=== PATIENT | female | born 1985 | race Caucasian/White ===

== ENCOUNTER 2017-07-18 20:40 | Inpatient (IN) | payer SELFPAY ==
[~2017-07-18] VITALS: Ht 162.6 cm; Wt 56.7 kg
[2017-07-18 20:45] VITALS: BP 133/84
--- NOTE | 2017-07-18 20:58 | Emergency Room Report ---
History of Present Illness General Chief Complaint: Behavioral Complaint Source: EMS Present Illness HPI 32-year-old female, Romanian-speaking, found by police running in the street. Patient was found crossing a mean intersection, barefoot, yelling "where's my phone". Police tried to keep her away from home, however patient was not cooperative, not informative. Will not provide any history. Only saying "I am from [place]", states that she has a sister, who lives in [place], however does not have any phone numbers. Patient noted to have right-sided foot redness, however not providing any history Such as timeline however states that it is painful. denies trauma. Patient able to ambulate without issue not providing any hx, no SI HI, however stating "I think you want to hurt me" to police/ems Allergies: Coded Allergies: UNABLE TO ASSESS (Unverified , 07/18/17) Patient History Limited by: language barrier Past Medical History: see triage record Past Surgical History: none Pertinent Family History: none Last Menstrual Period: unk Reviewed Nursing Documentation: PMH: Agreed, PSxH: Agreed Review of Systems All Other Systems: negative except mentioned in HPI Physical Exam Vital Signs Date Time Temp Pulse Resp B/P (MAP) Pulse Ox O2 Delivery O2 Flow Rate FiO2 07/18/17 20:36 97.9 100 20 133/84 98 Room Air Sp02 EP Interpretation: reviewed, normal General Appearance: alert, GCS 15, non-toxic, other - young female, guarded, aox3 however not cooperating w/ history fully Head: normocephalic, atraumatic Eyes: bilateral eye normal inspection, bilateral eye PERRL, bilateral eye EOMI ENT: normal ENT inspection, normal pharynx, normal voice, moist mucus membranes Neck: normal inspection, full range of motion, supple Respiratory: normal inspection, lungs clear, normal breath sounds, no respiratory distress, no retraction, no wheezing, speaking full sentences, chest symmetrical Cardiovascular #1: normal inspection, regular rate, rhythm, no edema, normal capillary refill Cardiovascular #2: 2+ radial (R), 2+ radial (L) Gastrointestinal: normal inspection, non tender, soft, non-distended, no guarding Musculoskeletal: other - R foot erythema, nontender, blisters on b/l toes Neurologic: normal inspection, alert, oriented x3, responsive, motor strength/ tone normal, sensory intact, normal gait, speech normal Psychiatric: no suicidal/homicidal ideation Skin: normal inspection, normal color, warm/dry, normal turgor Medical Decision Making Diagnostic Impression: Primary Impression: Behavioral change Additional Impression: Cellulitis of right ankle ER Course 32-year-old female, found in street No suicidal or homicidal ideation, does not appear to be intoxicated DDX: Behavioral change, at this time patient does not appear psychotic, however possibly social issue Right ankle redness-- Cellulitis r/o fx Plan: Obtained basic labs, contact family members Antibiotics for cellulitis ER course: Patient has remained stable during ED stay. Sleeping comfortably, not agitated, no SI or HI Antibiotics given for her right lower extremity cellulitis X-rays negative for fracture Disposition: Patient is admitted to [facility] for acute right lower extremity cellulitis . Please note that this Emergency Department Report was dictated using [employer] Wellness[employer]ignment officer technology software, occasionally this can lead to erroneous entry secondary to interpretation by the dictation equipment Last Vital Signs Date Time Temp Pulse Resp B/P (MAP) Pulse Ox O2 Delivery O2 Flow Rate FiO2 07/18/17 20:36 97.9 100 20 133/84 98 Room Air Disposition: ADMITTED INPATIENT Condition: Serious Scripts Cephalexin* (KEFLEX*) 500 Mg Capsule 500 MG ORAL Q6H for 7 Days, #28 CAP 0 Refills Prov: Wayne Dockery M.D. 07/18/17 Wayne Dockery M.D. Jul 18, 2017 20:58
[2017-07-18] MEDS ORDERED: KEFLEX500 MG ORAL (21:23)
[2017-07-18 21:40] LABS: MEAN CORPUSCULAR HEMOGLOBIN 28.9 PG (27.0-31.0); MEAN CORPUSCULAR HGB CONC 31.3 G/DL (32.0-36.0); MEAN CORPUSCULAR VOLUME 92 FL (80-99); MEAN PLATELET VOLUME 6.4 FL (6.5-10.1); PLATELET COUNT 244 K/UL (150-450); RED BLOOD COUNT 4.17 M/UL (4.20-5.40); RED CELL DISTRIBUTION WIDTH 11.9 % (11.6-14.8); WHITE BLOOD COUNT 21.3 K/UL (4.8-10.8)
[2017-07-18 21:58] LABS: ACETAMINOPHEN < 10 ug/mL (10-30); ALANINE AMINOTRANSFERASE 23 U/L (3-33); ALBUMIN/GLOBULIN RATIO 1.4 (1.0-2.7); ALCOHOL < 10 mg/dL; ANION GAP 13 (5-15); ASPARTATE AMINO TRANSFERASE 79 U/L (5-40); CARBON DIOXIDE 25 mEQ/L (20-30); CHLORIDE 97 mEQ/L (98-107); CREATININE 0.9 mg/dL (0.5-0.9); GLOMERULAR FILTRATION RATE > 60 mL/min (>60); HEMOLYSIS 124; POTASSIUM 4.8 mEQ/L (3.4-4.9); SODIUM 135 mEQ/L (135-145); TOTAL PROTEIN 6.8 g/dL (6.6-8.7)
[2017-07-18 22:28] LABS: BAND NEUTROPHILS % (MANUAL) 0 % (0-8); BASOPHILS % (MANUAL) 0 % (0-2); EOSINOPHILS % (MANUAL) 0 % (0-3); LYMPHOCYTES % (MANUAL) 7 % (20-45); NEUTROPHILS % (MANUAL) 85 % (45-75); PLATELET ESTIMATE ADEQUATE; PLATELET MORPHOLOGY NORMAL; TOTAL CELLS COUNTED 100
[2017-07-18] MEDS ORDERED: Vancomycin 1250mg/D5W 250ml 250 ML IVPB ONE (22:30)
[2017-07-18] MEDS ORDERED: Vancomycin 1gm inj IVPB ONE (23:20)
[2017-07-18] MEDS ORDERED: Vancomycin 1 GM in NS 275 ML IVPB ONE (23:30)
[2017-07-19] MEDS ORDERED: Albuterol/Ipratropium 3ml neb HHN PRN (00:15)
[2017-07-19] MEDS ORDERED: Nitroglycerin Subl 0.4mg tab SL PRN (00:15)
[2017-07-19] MEDS ORDERED: Miralax 17gm pkt ORAL PRN (00:15)
[2017-07-19] MEDS ORDERED: Morphine Sulfate 2mg/ml Inj IVP PRN (00:15)
[2017-07-19 02:09] VITALS: BP 131/83
[2017-07-19 03:03] LABS: APPEARANCE,URINE SLIGHTLY CLOUDY; KETONES,URINE 2+ (NEGATIVE); LEUKOCYTE ESTERASE ,URINE NEGATIVE (NEGATIVE); NITRITE,URINE NEGATIVE (NEGATIVE); PH,URINE 5 (4.5-8.0); PROTEIN,URINE 2+ (NEGATIVE); UROBILINOGEN,URINE 4 MG/DL (0.0-1.0)
[2017-07-19 03:15] VITALS: BP 110/68
[2017-07-19 03:21] LABS: WBC,URINE 0-2 /HPF (0 - 2)
[2017-07-19 03:22] LABS: BACTERIA,URINE FEW /HPF; MUCUS,URINE MODERATE /LPF (NONE/OCC); SQUAMOUS EPITHELIAL CELL,UR MODERATE /LPF (NONE/OCC)
[2017-07-19 05:16] VITALS: BP 110/75
[2017-07-19 08:00] VITALS: BP 120/63
[2017-07-19] MEDS: Heparin 5000 units/ml inj SUBQ SCH ×2 (08:56→21:25)
[2017-07-19] MEDS: Cefepime HCl 2 GM in D5W 110 ML IV SCH ×2 (09:59→21:11)
--- NOTE | 2017-07-19 11:38 | Diagnostic Imaging Report ---
Indication: PAIN Technique: 3 or 4 views of the right ankle Comparison: none Findings: No acute fractures. No dislocations. Joint spaces are preserved. There is soft tissue swelling over the lateral malleolus Impression: Lateral soft tissue swelling. No acute bony trauma
--- NOTE | 2017-07-19 11:48 | Consultation ---
History of Present Illness General Chief Complaint: Behavioral Complaint Present Illness HPI 32-year-old female, Vincentian-speaking, found by police running in the street. Patient was found crossing a mean intersection, barefoot, yelling "where's my phone". During the eval the pt was uncooperative and had persecutory delusion. she stated that you want to kill me. the pt has poor insight. has been taking meds. she stated she has family here but then she stated she does not. Allergies: Coded Allergies: No Known Allergies (Unverified , 07/19/17) Medication History Scheduled Cephalexin* (Keflex*), 500 MG ORAL Q6H Patient History History Provided By: Patient, Medical Record Healthcare decision maker Resuscitation status Full Code Advanced Directive on File Past Medical/Surgical History Past Medical/Surgical History: (1) Behavioral change (2) Cellulitis of right ankle Review of Systems Psychiatric: Reports: prior hx, emotional problems, hallucinations Physical Exam General Appearance: no apparent distress, alert, thin Neurologic: alert, oriented x 3, responsive Last 24 Hour Vital Signs Date Time Temp Pulse Resp B/P (MAP) Pulse Ox O2 Delivery O2 Flow Rate FiO2 07/19/17 08:00 98.4 83 19 120/63 100 Room Air 07/19/17 05:16 98.2 78 16 110/75 97 Room Air 07/19/17 03:15 97.9 85 18 110/68 97 Room Air 07/19/17 02:40 98.6 80 20 131/83 99 Room Air 07/19/17 02:09 98.6 80 20 131/83 99 Room Air 07/18/17 20:45 97.9 60 20 133/84 98 Room Air 07/18/17 20:36 97.9 100 20 133/84 98 Room Air Laboratory Tests Test 07/18/17 21:22 07/19/17 02:28 White Blood Count 21.3 K/UL (4.8-10.8) H Red Blood Count 4.17 M/UL (4.20-5.40) L Hemoglobin 12.0 G/DL (12.0-16.0) Hematocrit 38.4 % (37.0-47.0) Mean Corpuscular Volume 92 FL (80-99) Mean Corpuscular Hemoglobin 28.9 PG (27.0-31.0) Mean Corpuscular Hemoglobin Concent 31.3 G/DL (32.0-36.0) L Red Cell Distribution Width 11.9 % (11.6-14.8) Platelet Count 244 K/UL (150-450) Mean Platelet Volume 6.4 FL (6.5-10.1) L Neutrophils (%) (Auto) % (45.0-75.0) Lymphocytes (%) (Auto) % (20.0-45.0) Monocytes (%) (Auto) % (1.0-10.0) Eosinophils (%) (Auto) % (0.0-3.0) Basophils (%) (Auto) % (0.0-2.0) Differential Total Cells Counted 100 Neutrophils % (Manual) 85 % (45-75) H Lymphocytes % (Manual) 7 % (20-45) L Monocytes % (Manual) 8 % (1-10) Eosinophils % (Manual) 0 % (0-3) Basophils % (Manual) 0 % (0-2) Band Neutrophils 0 % (0-8) Platelet Estimate Adequate Platelet Morphology Normal Red Blood Cell Morphology Normal Sodium Level 135 mEQ/L (135-145) Potassium Level 4.8 mEQ/L (3.4-4.9) Chloride Level 97 mEQ/L (98-107) L Carbon Dioxide Level 25 mEQ/L (20-30) Anion Gap 13 (5-15) Blood Urea Nitrogen 21 mg/dL (7-23) Creatinine 0.9 mg/dL (0.5-0.9) Estimat Glomerular Filtration Rate > 60 mL/min (>60) Glucose Level 149 mg/dL (74-106) H Calcium Level 9.0 mg/dL (8.6-10.2) Total Bilirubin 0.9 mg/dL (0.0-1.2) Aspartate Amino Transf (AST/SGOT) 79 U/L (5-40) H Alanine Aminotransferase (ALT/SGPT) 23 U/L (3-33) Alkaline Phosphatase 50 U/L (35-104) Total Protein 6.8 g/dL (6.6-8.7) Albumin 4.0 g/dL (3.5-5.2) Globulin 2.8 g/dL Albumin/Globulin Ratio 1.4 (1.0-2.7) Salicylates Level < 1 mg/dL (10-30) L Acetaminophen Level < 10 ug/mL (10-30) L Serum Alcohol < 10 mg/dL Urine Color Yellow Urine Appearance Slightly cloudy Urine pH 5 (4.5-8.0) Urine Specific [place] 1.025 (1.005-1.035) Urine Protein 2+ (NEGATIVE) H Urine Glucose (UA) Negative (NEGATIVE) Urine Ketones 2+ (NEGATIVE) H Urine Occult Blood 4+ (NEGATIVE) H Urine Nitrite Negative (NEGATIVE) Urine Bilirubin Negative (NEGATIVE) Urine Urobilinogen 4 MG/DL (0.0-1.0) H Urine Leukocyte Esterase Negative (NEGATIVE) Urine RBC 5-10 /HPF (0 - 2) H Urine WBC 0-2 /HPF (0 - 2) Urine Squamous Epithelial Cells Moderate /LPF (NONE/OCC) H Urine Bacteria Few /HPF (NONE) Urine Mucus Moderate /LPF (NONE/OCC) H Urine HCG, Qualitative Negative Urine Opiates Screen Negative (NEGATIVE) Urine Barbiturates Screen Negative (NEGATIVE) Phencyclidine (PCP) Screen Negative (NEGATIVE) Urine Amphetamines Screen Negative (NEGATIVE) Urine Benzodiazepines Screen Negative (NEGATIVE) Urine Cocaine Screen Negative (NEGATIVE) Urine Marijuana (THC) Screen Positive (NEGATIVE) H Height (Feet): 5 Height (Inches): 4.00 Weight (Pounds): 125 Medications Current Medications Medications (Trade) Dose Ordered Sig/Florian Route PRN Reason Start Time Stop Time Status Last Admin Dose Admin Acetaminophen (Tylenol) 650 mg Q4H PRN ORAL fever 07/19/17 00:15 08/18/17 00:14 Albuterol/ Ipratropium (DuoNeb 0.5-3(2.5)mg/3ml) 3 ml EVERY 4 HOURS PRN HHN Shortness of Breath 07/19/17 00:15 07/24/17 00:14 Cefepime HCl 2 gm/ Dextrose 110 ml @ 220 mls/hr EVERY 12 HOURS IV 07/19/17 09:00 07/26/17 08:59 07/19/17 09:59 Dextrose (Dextrose 50%) STAT PRN IV Hypoglycemia 07/19/17 00:15 08/18/17 00:14 Heparin Sodium (Porcine) (Heparin 5000 units/ml) 5,000 units EVERY 12 HOURS SUBQ 07/19/17 09:00 08/18/17 08:59 Morphine Sulfate (Morphine Sulfate) 2 mg EVERY 4 HOURS PRN IVP Moderate Pain (Pain Scale 4-6) 07/19/17 00:15 07/26/17 00:14 Nitroglycerin (Ntg) 0.4 mg Every 5 Minutes PRN SL Prn Chest Pain 07/19/17 00:15 08/18/17 00:14 Ondansetron HCl (Zofran) 4 mg Q6H PRN IVP Nausea & Vomiting 07/19/17 00:15 08/18/17 00:14 Polyethylene Glycol (Miralax) 17 gm DAILYPRN PRN ORAL Constipation 07/19/17 00:15 08/18/17 00:14 Risperidone (RisperDAL) 2 mg BEDTIME ORAL 07/19/17 21:00 08/18/17 20:59 Risperidone (RisperDAL) 2 mg ONCE ONCE ORAL 07/19/17 11:45 07/19/17 11:46 Temazepam (Restoril) 15 mg HSPRN PRN ORAL Insomnia 07/19/17 00:15 07/26/17 00:14 Vancomycin HCl (Vanco rx to dose) 1 ea DAILY PRN MISC PER PROTOCOL 07/19/17 01:30 08/18/17 01:29 Vancomycin/Sodium Chloride 250 ml @ 166.667 mls/hr Q12H IVPB 07/19/17 12:00 07/24/17 11:59 Assessment/Plan Status: stable, progressing Assessment/Plan Schizophrenia, r/o drug induced psychosis -risperdal 2mg qhs -risperdal 2mgx 1 dose Darling Aragon M.D. Jul 19, 2017 11:48
[2017-07-19 12:00] VITALS: BP 123/75
[2017-07-19] MEDS: Vancomycin 750mg/NS 250ml IVPB SCH ×2 (12:00→23:20)
--- NOTE | 2017-07-19 13:05 | Wound Care Consultation ---
Wound Assessment Wound Assessment : Wound Number: 1 Wound Present on Admission: Yes New Wound: No Status Change of Wound: No Wound Location Body Site Modif: left, right Wound Location Body Site: toe Wound Type: scab Betsey Test: Does not Betsey Wound Thickness: Full Thickness Percent of Wound Purple/Maroon: 100 - dry Wound Drainage Amount: None Wound Drainage Odor: None/Absent Tissue Surrounding Wound: thick toe nails Wound General Appearance: Reddened JUAN VELAZQUEZ RN Jul 19, 2017 13:05
--- NOTE | 2017-07-19 15:20 | Consultation ---
History of Present Illness General Date patient seen: Jul 19, 2017 Chief Complaint: Behavioral Complaint Reason for Consultation: inpatient management Present Illness HPI 32-year-old female, Jamaican-speaking, found by police running in the street. Patient was found crossing a mean intersection, barefoot, yelling "where's my phone". She kept saying "I am from [place]", states that she has a sister, who lives in [place], however does not have any phone numbers. Patient noted to have right-sided foot redness, pt is admitted for acute psychosis and cellulitis. Allergies: Coded Allergies: No Known Allergies (Unverified , 07/19/17) Medication History Scheduled Cephalexin* (Keflex*), 500 MG ORAL Q6H Patient History Healthcare decision maker Resuscitation status Full Code Advanced Directive on File Review of Systems All Other Systems: negative except mentioned in HPI Physical Exam General Appearance: WD/WN Lines, tubes and drains: peripheral, central line HEENT: normocephalic, atraumatic Neck: non-tender, normal alignment Respiratory/Chest: chest wall non-tender, lungs clear Cardiovascular/Chest: normal peripheral pulses, normal rate Abdomen: normal bowel sounds, soft Genitourinary/Rectal: normal genital exam, normal rectal exam Last 24 Hour Vital Signs Date Time Temp Pulse Resp B/P (MAP) Pulse Ox O2 Delivery O2 Flow Rate FiO2 07/19/17 12:00 98.2 81 18 123/75 99 Room Air 07/19/17 08:00 98.4 83 19 120/63 100 Room Air 07/19/17 05:16 98.2 78 16 110/75 97 Room Air 07/19/17 03:15 97.9 85 18 110/68 97 Room Air 07/19/17 02:40 98.6 80 20 131/83 99 Room Air 07/19/17 02:09 98.6 80 20 131/83 99 Room Air 07/18/17 20:45 97.9 60 20 133/84 98 Room Air 07/18/17 20:36 97.9 100 20 133/84 98 Room Air Laboratory Tests Test 07/18/17 21:22 07/19/17 02:28 White Blood Count 21.3 K/UL (4.8-10.8) H Red Blood Count 4.17 M/UL (4.20-5.40) L Hemoglobin 12.0 G/DL (12.0-16.0) Hematocrit 38.4 % (37.0-47.0) Mean Corpuscular Volume 92 FL (80-99) Mean Corpuscular Hemoglobin 28.9 PG (27.0-31.0) Mean Corpuscular Hemoglobin Concent 31.3 G/DL (32.0-36.0) L Red Cell Distribution Width 11.9 % (11.6-14.8) Platelet Count 244 K/UL (150-450) Mean Platelet Volume 6.4 FL (6.5-10.1) L Neutrophils (%) (Auto) % (45.0-75.0) Lymphocytes (%) (Auto) % (20.0-45.0) Monocytes (%) (Auto) % (1.0-10.0) Eosinophils (%) (Auto) % (0.0-3.0) Basophils (%) (Auto) % (0.0-2.0) Differential Total Cells Counted 100 Neutrophils % (Manual) 85 % (45-75) H Lymphocytes % (Manual) 7 % (20-45) L Monocytes % (Manual) 8 % (1-10) Eosinophils % (Manual) 0 % (0-3) Basophils % (Manual) 0 % (0-2) Band Neutrophils 0 % (0-8) Platelet Estimate Adequate Platelet Morphology Normal Red Blood Cell Morphology Normal Sodium Level 135 mEQ/L (135-145) Potassium Level 4.8 mEQ/L (3.4-4.9) Chloride Level 97 mEQ/L (98-107) L Carbon Dioxide Level 25 mEQ/L (20-30) Anion Gap 13 (5-15) Blood Urea Nitrogen 21 mg/dL (7-23) Creatinine 0.9 mg/dL (0.5-0.9) Estimat Glomerular Filtration Rate > 60 mL/min (>60) Glucose Level 149 mg/dL (74-106) H Calcium Level 9.0 mg/dL (8.6-10.2) Total Bilirubin 0.9 mg/dL (0.0-1.2) Aspartate Amino Transf (AST/SGOT) 79 U/L (5-40) H Alanine Aminotransferase (ALT/SGPT) 23 U/L (3-33) Alkaline Phosphatase 50 U/L (35-104) Total Protein 6.8 g/dL (6.6-8.7) Albumin 4.0 g/dL (3.5-5.2) Globulin 2.8 g/dL Albumin/Globulin Ratio 1.4 (1.0-2.7) Salicylates Level < 1 mg/dL (10-30) L Acetaminophen Level < 10 ug/mL (10-30) L Serum Alcohol < 10 mg/dL Urine Color Yellow Urine Appearance Slightly cloudy Urine pH 5 (4.5-8.0) Urine Specific [place] 1.025 (1.005-1.035) Urine Protein 2+ (NEGATIVE) H Urine Glucose (UA) Negative (NEGATIVE) Urine Ketones 2+ (NEGATIVE) H Urine Occult Blood 4+ (NEGATIVE) H Urine Nitrite Negative (NEGATIVE) Urine Bilirubin Negative (NEGATIVE) Urine Urobilinogen 4 MG/DL (0.0-1.0) H Urine Leukocyte Esterase Negative (NEGATIVE) Urine RBC 5-10 /HPF (0 - 2) H Urine WBC 0-2 /HPF (0 - 2) Urine Squamous Epithelial Cells Moderate /LPF (NONE/OCC) H Urine Bacteria Few /HPF (NONE) Urine Mucus Moderate /LPF (NONE/OCC) H Urine HCG, Qualitative Negative Urine Opiates Screen Negative (NEGATIVE) Urine Barbiturates Screen Negative (NEGATIVE) Phencyclidine (PCP) Screen Negative (NEGATIVE) Urine Amphetamines Screen Negative (NEGATIVE) Urine Benzodiazepines Screen Negative (NEGATIVE) Urine Cocaine Screen Negative (NEGATIVE) Urine Marijuana (THC) Screen Positive (NEGATIVE) H Height (Feet): 5 Height (Inches): 4.00 Weight (Pounds): 125 Medications Current Medications Medications (Trade) Dose Ordered Sig/Florian Route PRN Reason Start Time Stop Time Status Last Admin Dose Admin Acetaminophen (Tylenol) 650 mg Q4H PRN ORAL fever 07/19/17 00:15 08/18/17 00:14 Albuterol/ Ipratropium (DuoNeb 0.5-3(2.5)mg/3ml) 3 ml EVERY 4 HOURS PRN HHN Shortness of Breath 07/19/17 00:15 07/24/17 00:14 Cefepime HCl 2 gm/ Dextrose 110 ml @ 220 mls/hr EVERY 12 HOURS IV 07/19/17 09:00 07/26/17 08:59 07/19/17 09:59 Clotrimazole (Lotrimin) 1 applic EVERY 12 HOURS TOPIC 07/19/17 21:00 08/18/17 20:59 Dextrose (Dextrose 50%) STAT PRN IV Hypoglycemia 07/19/17 00:15 08/18/17 00:14 Heparin Sodium (Porcine) (Heparin 5000 units/ml) 5,000 units EVERY 12 HOURS SUBQ 07/19/17 09:00 08/18/17 08:59 Morphine Sulfate (Morphine Sulfate) 2 mg EVERY 4 HOURS PRN IVP Moderate Pain (Pain Scale 4-6) 07/19/17 00:15 07/26/17 00:14 Nitroglycerin (Ntg) 0.4 mg Every 5 Minutes PRN SL Prn Chest Pain 07/19/17 00:15 08/18/17 00:14 Ondansetron HCl (Zofran) 4 mg Q6H PRN IVP Nausea & Vomiting 07/19/17 00:15 08/18/17 00:14 Polyethylene Glycol (Miralax) 17 gm DAILYPRN PRN ORAL Constipation 07/19/17 00:15 08/18/17 00:14 Risperidone (RisperDAL) 2 mg BEDTIME ORAL 07/19/17 21:00 08/18/17 20:59 Temazepam (Restoril) 15 mg HSPRN PRN ORAL Insomnia 07/19/17 00:15 07/26/17 00:14 Vancomycin HCl (Vanco rx to dose) 1 ea DAILY PRN MISC PER PROTOCOL 07/19/17 01:30 08/18/17 01:29 Vancomycin/Sodium Chloride 250 ml @ 166.667 mls/hr Q12H IVPB 07/19/17 12:00 07/24/17 11:59 Assessment/Plan Problem List: (1) Acute encephalopathy ICD Codes: G93.40 - Encephalopathy, unspecified SNOMED: 7532623 (2) Cellulitis of right ankle ICD Codes: L03.115 - Cellulitis of right lower limb SNOMED: 74918839 (3) Psychosis ICD Codes: F29 - Unspecified psychosis not due to a substance or known physiological condition SNOMED: 05961191 Assessment/Plan iv abx psych evaluation SAMI CHILDS Jul 19, 2017 15:20
[2017-07-19 20:00] VITALS: BP 114/59
[2017-07-20] VITALS: BP 113/61
[2017-07-20] MEDS ORDERED: Vancomycin 1 GM in D5W 275 ML IV SCH (00:30)
[2017-07-20 04:00] VITALS: BP 90/59
--- NOTE | 2017-07-20 04:45 | History and Physical Report ---
DATE OF ADMISSION: 07/18/2017 Chief Complaint: The patient is a 32-year-old white female, who presents with chief complaint of right foot pain and swelling. History Of Present Illness: The patient herself is unable to contribute much to the history and physical. The patient is Kyrgyz-speaking only. The patient does speak a few words of Korean. The patient also has a psychiatric disorder, which is unknown at this time. The patient has been evaluated by Dr. Colón and has been diagnosed with schizophrenia, not otherwise specified. According to the medical record, the patient was found in the street. The patient was disorganized. The patient was therefore yelling "where is my phone." The patient was uncooperative with police. The patient kept saying she was from [place]. The patient presented to [facility]. The patient was found to have a swollen red right foot. The patient was admitted for grave disability and right foot cellulitis. PAST MEDICAL HISTORY: Unknown. PAST SURGICAL HISTORY: Unknown. MEDICATIONS: Current medications, unknown. ALLERGIES: Unknown. SOCIAL HISTORY: Unknown. PHYSICAL EXAMINATION: General: The patient is well developed and well nourished, thin appearing, disheveled white female, who is pacing the [place]. Vital Signs: Temperature 98.6 degrees, respirations 20, pulse 80, and blood pressure 131/83. HEENT: Eyes, pupils are equal and responsive to light and accommodation. Extraocular movements are intact. NECK: Supple without lymphadenopathy. Chest: Lungs are clear to auscultation bilaterally without wheezes or rales. Cardiovascular: Regular rhythm and rate. S1 and S2 normal without murmurs, rubs, or gallops. Abdomen: Soft, nontender, and nondistended. Positive bowel sounds. No evidence of hepatosplenomegaly. Currently, no rebound or guarding noted. Extremities: The right foot is erythematous to the ankle. The right foot is swollen. Otherwise, extremities are without clubbing, cyanosis, or edema. RECTAL/GENITAL: Refused. Neurologic: Cranial nerves II through XII are grossly intact without focal deficits. Laboratory And Diagnostic Studies: WBC 21.3, hemoglobin 12.0, hematocrit 38.4, and platelets 244,000. Sodium 135, potassium 4.8, chloride 97, CO2 of 25, BUN 21, creatinine 0.9, and glucose 149. Urinalysis showed 4+ occult blood, 2+ ketones with negative leukocyte esterase. A urine toxicology was positive for marijuana. ASSESSMENT: This is a 32-year-old white female. 1. Altered mental status. 2. Cellulitis of right foot. 3. Schizophrenia, not otherwise specified. 4. Grave disability. TREATMENT: 1. Altered mental status. This is probably secondary to cellulitis of right foot. An Infectious Diseases consultation will be obtained with Dr. Womack. The patient has been started empirically on intravenous vancomycin and cefepime. We will follow recommendation of Infectious Diseases. 2. Altered mental status. This is probably secondary to untreated schizophrenia. 3. Schizophrenia. Psychiatric consultation will be obtained with Dr. Colón. 4. Grave disability. This is probably secondary to schizophrenia as above. Jonathan Aguilar M.D. DR: STORMY JOB#: [id number] CC:
[2017-07-20 07:57] VITALS: BP 112/64
[2017-07-20 08:49] LABS: BASOPHILS % (AUTO) 0.9 % (0.0-2.0); EOSINOPHILS % (AUTO) 1.4 % (0.0-3.0); MEAN CORPUSCULAR HEMOGLOBIN 30.3 PG (27.0-31.0); MEAN CORPUSCULAR HGB CONC 32.9 G/DL (32.0-36.0); MEAN CORPUSCULAR VOLUME 92 FL (80-99); MEAN PLATELET VOLUME 7.8 FL (6.5-10.1); NEUTROPHILS % (AUTO) 67.7 % (45.0-75.0); PLATELET COUNT 272 K/UL (150-450); RED BLOOD COUNT 4.05 M/UL (4.20-5.40); RED CELL DISTRIBUTION WIDTH 12.1 % (11.6-14.8); WHITE BLOOD COUNT 7.4 K/UL (4.8-10.8)
[2017-07-20 09:00] LABS: ALANINE AMINOTRANSFERASE 16 U/L (3-33); ALBUMIN/GLOBULIN RATIO 1.4 (1.0-2.7); ANION GAP 11 (5-15); ASPARTATE AMINO TRANSFERASE 25 U/L (5-40); CARBON DIOXIDE 29 mEQ/L (20-30); CHLORIDE 103 mEQ/L (98-107); CREATININE 0.9 mg/dL (0.5-0.9); GLOMERULAR FILTRATION RATE > 60 mL/min (>60); HEMOLYSIS 2; POTASSIUM 3.6 mEQ/L (3.4-4.9); SODIUM 143 mEQ/L (135-145); TOTAL PROTEIN 6.4 g/dL (6.6-8.7)
[2017-07-20] MEDS: Cefepime HCl 2 GM in D5W 110 ML IV SCH (09:53)
[2017-07-20] MEDS: Heparin 5000 units/ml inj SUBQ SCH ×3 (09:58→21:16)
--- NOTE | 2017-07-20 10:23 | Consultation ---
Consult Note Consult Note dic # [id number] RUEL ROSADO M.D. Jul 20, 2017 10:23
[2017-07-20 11:44] VITALS: BP 116/65
[2017-07-20] MEDS: Vancomycin 750mg/NS 250ml IVPB SCH (12:57)
--- NOTE | 2017-07-20 15:25 | Pulmonology Progress Note ---
Assessment/Plan Problems: (1) Acute encephalopathy (2) Cellulitis of right ankle (3) Psychosis Assessment/Plan Level of conciousness improved Mentation improved Continue broad spectrum antbx Pain management Anti-inflammatories Tolerating feeding Aspiration precautions Subjective ROS Limited/Unobtainable: No Constitutional: Reports: fatigue, anorexia Skin: Reports: rash Hematologic: Reports: swollen lymph nodes Musculoskeletal: Reports: pain, swelling, stiffness Allergies: Coded Allergies: No Known Allergies (Unverified , 07/19/17) Objective Last 24 Hour Vital Signs Date Time Temp Pulse Resp B/P (MAP) Pulse Ox O2 Delivery O2 Flow Rate FiO2 07/20/17 11:44 98.2 80 20 116/65 98 Room Air 07/20/17 08:31 62 16 Room Air 21 07/20/17 07:57 97.9 86 20 112/64 98 Room Air 07/20/17 04:00 97.7 99 18 90/59 99 Room Air 07/20/17 00:00 98.1 62 18 113/61 100 Nasal Cannula 07/19/17 20:22 79 16 Room Air 21 07/19/17 20:00 98.2 67 20 114/59 95 Room Air Intake and Output 07/20/17 07/21/17 19:00 07:00 Intake Total 720 ml Balance 720 ml Intake Oral 720 ml # Voids 5 # Bowel Movements 2 General Appearance: no acute distress HEENT: normocephalic, atraumatic, PERRL Respiratory/Chest: chest wall non-tender, lungs clear, normal breath sounds Breasts: no masses Cardiovascular: normal peripheral pulses, normal rate, regular rhythm, no JVD Abdomen: normal bowel sounds, soft, non tender, no organomegaly, non distended Genitourinary: normal external genitalia Extremities: no cyanosis, other - Right lower ankle highly edematous and erythematous Laboratory Tests 07/20/17 07:55: White Blood Count 7.4#, Red Blood Count 4.05L, Hemoglobin 12.3, Hematocrit 37.4 , Mean Corpuscular Volume 92, Mean Corpuscular Hemoglobin 30.3, Mean Corpuscular Hemoglobin Concent 32.9, Red Cell Distribution Width 12.1, Platelet Count 272, Mean Platelet Volume 7.8, Neutrophils (%) (Auto) 67.7, Lymphocytes (% ) (Auto) 19.0L, Monocytes (%) (Auto) 11.0H, Eosinophils (%) (Auto) 1.4, Basophils (%) (Auto) 0.9, Sodium Level 143, Potassium Level 3.6, Chloride Level 103, Carbon Dioxide Level 29, Anion Gap 11, Blood Urea Nitrogen 13, Creatinine 0.9, Estimat Glomerular Filtration Rate > 60, Glucose Level 116H, Calcium Level 9.0, Total Bilirubin 0.5, Aspartate Amino Transf (AST/SGOT) 25, Alanine Aminotransferase (ALT/SGPT) 16, Alkaline Phosphatase 51, Total Protein 6.4L, Albumin 3.8, Globulin 2.6, Albumin/Globulin Ratio 1.4, Hepatitis A IgM Antibody [Pending], Hepatitis B Surface Antigen [Pending], Hepatitis B Core IgM Antibody [Pending], Hepatitis C Antibody [Pending] Current Medications Medications (Trade) Dose Ordered Sig/Florian Route PRN Reason Start Time Stop Time Status Last Admin Dose Admin Acetaminophen (Tylenol) 650 mg Q4H PRN ORAL fever 07/19/17 00:15 08/18/17 00:14 Albuterol/ Ipratropium (DuoNeb 0.5-3(2.5)mg/3ml) 3 ml EVERY 4 HOURS PRN HHN Shortness of Breath 07/19/17 00:15 07/24/17 00:14 Clotrimazole (Lotrimin) 1 applic EVERY 12 HOURS TOPIC 07/19/17 21:00 08/18/17 20:59 07/20/17 09:53 Dextrose (Dextrose 50%) STAT PRN IV Hypoglycemia 07/19/17 00:15 08/18/17 00:14 Heparin Sodium (Porcine) (Heparin 5000 units/ml) 5,000 units EVERY 12 HOURS SUBQ 07/19/17 09:00 08/18/17 08:59 07/20/17 09:58 Morphine Sulfate (Morphine Sulfate) 2 mg EVERY 4 HOURS PRN IVP Moderate Pain (Pain Scale 4-6) 07/19/17 00:15 07/26/17 00:14 Nitroglycerin (Ntg) 0.4 mg Every 5 Minutes PRN SL Prn Chest Pain 07/19/17 00:15 08/18/17 00:14 Ondansetron HCl (Zofran) 4 mg Q6H PRN IVP Nausea & Vomiting 07/19/17 00:15 08/18/17 00:14 Polyethylene Glycol (Miralax) 17 gm DAILYPRN PRN ORAL Constipation 07/19/17 00:15 08/18/17 00:14 Risperidone (RisperDAL) 2 mg BID ORAL 07/20/17 18:00 08/18/17 20:59 Temazepam (Restoril) 15 mg HSPRN PRN ORAL Insomnia 07/19/17 00:15 07/26/17 00:14 Vancomycin HCl (Vanco rx to dose) 1 ea DAILY PRN MISC PER PROTOCOL 07/19/17 01:30 08/18/17 01:29 Vancomycin/Sodium Chloride 250 ml @ 166.667 mls/hr Q12H IVPB 07/19/17 12:00 07/24/17 11:59 07/20/17 12:57 SAMI CHILDS Jul 20, 2017 15:25
[2017-07-20 15:45] VITALS: BP 103/55
--- NOTE | 2017-07-20 15:52 | Internal Med Progress Note ---
Subjective Date of Service: Jul 20, 2017 Physician Name Jonathan Franklin Attending Physician Von Subramanian MD Current Medications Medications (Trade) Dose Ordered Sig/Florian Route PRN Reason Start Time Stop Time Status Last Admin Dose Admin Acetaminophen (Tylenol) 650 mg Q4H PRN ORAL fever 07/19/17 00:15 08/18/17 00:14 Albuterol/ Ipratropium (DuoNeb 0.5-3(2.5)mg/3ml) 3 ml EVERY 4 HOURS PRN HHN Shortness of Breath 07/19/17 00:15 07/24/17 00:14 Clotrimazole (Lotrimin) 1 applic EVERY 12 HOURS TOPIC 07/19/17 21:00 08/18/17 20:59 07/20/17 09:53 Dextrose (Dextrose 50%) STAT PRN IV Hypoglycemia 07/19/17 00:15 08/18/17 00:14 Heparin Sodium (Porcine) (Heparin 5000 units/ml) 5,000 units EVERY 12 HOURS SUBQ 07/19/17 09:00 08/18/17 08:59 07/20/17 09:58 Morphine Sulfate (Morphine Sulfate) 2 mg EVERY 4 HOURS PRN IVP Moderate Pain (Pain Scale 4-6) 07/19/17 00:15 07/26/17 00:14 Nitroglycerin (Ntg) 0.4 mg Every 5 Minutes PRN SL Prn Chest Pain 07/19/17 00:15 08/18/17 00:14 Ondansetron HCl (Zofran) 4 mg Q6H PRN IVP Nausea & Vomiting 07/19/17 00:15 08/18/17 00:14 Polyethylene Glycol (Miralax) 17 gm DAILYPRN PRN ORAL Constipation 07/19/17 00:15 08/18/17 00:14 Risperidone (RisperDAL) 2 mg BID ORAL 07/20/17 18:00 08/18/17 20:59 Temazepam (Restoril) 15 mg HSPRN PRN ORAL Insomnia 07/19/17 00:15 07/26/17 00:14 Vancomycin HCl (Vanco rx to dose) 1 ea DAILY PRN MISC PER PROTOCOL 07/19/17 01:30 08/18/17 01:29 Vancomycin/Sodium Chloride 250 ml @ 166.667 mls/hr Q12H IVPB 07/19/17 12:00 07/24/17 11:59 07/20/17 12:57 Allergies: Coded Allergies: No Known Allergies (Unverified , 07/19/17) ROS Limited/Unobtainable: Yes Subjective 32 YO F admitted with altered mental status. Now cellulitis right foot and Psycosis. Cover for Int Med-Dr Subramanian. Refusing meds. Objective Last Vital Signs Date Time Temp Pulse Resp B/P (MAP) Pulse Ox O2 Delivery O2 Flow Rate FiO2 07/20/17 15:45 98.4 72 20 103/55 98 Room Air 07/20/17 08:31 21 General Appearance: WD/WN, no apparent distress, alert EENT: PERRL/EOMI, normal ENT inspection Neck: non-tender, normal alignment, supple, normal inspection Cardiovascular: normal peripheral pulses, normal rate, regular rhythm, no gallop/murmur, no JVD Respiratory/Chest: chest wall non-tender, lungs clear, normal breath sounds, no respiratory distress, no accessory muscle use Abdomen: normal bowel sounds, non tender, soft, no organomegaly, no mass Extremities: normal range of motion Neurologic: roll icer II-XII grossly normal, no motor/sensory deficits Skin: normal pigmentation, warm/dry Laboratory Tests Test 07/20/17 07:55 White Blood Count 7.4 K/UL (4.8-10.8) # Red Blood Count 4.05 M/UL (4.20-5.40) L Hemoglobin 12.3 G/DL (12.0-16.0) Hematocrit 37.4 % (37.0-47.0) Mean Corpuscular Volume 92 FL (80-99) Mean Corpuscular Hemoglobin 30.3 PG (27.0-31.0) Mean Corpuscular Hemoglobin Concent 32.9 G/DL (32.0-36.0) Red Cell Distribution Width 12.1 % (11.6-14.8) Platelet Count 272 K/UL (150-450) Mean Platelet Volume 7.8 FL (6.5-10.1) Neutrophils (%) (Auto) 67.7 % (45.0-75.0) Lymphocytes (%) (Auto) 19.0 % (20.0-45.0) L Monocytes (%) (Auto) 11.0 % (1.0-10.0) H Eosinophils (%) (Auto) 1.4 % (0.0-3.0) Basophils (%) (Auto) 0.9 % (0.0-2.0) Sodium Level 143 mEQ/L (135-145) Potassium Level 3.6 mEQ/L (3.4-4.9) Chloride Level 103 mEQ/L (98-107) Carbon Dioxide Level 29 mEQ/L (20-30) Anion Gap 11 (5-15) Blood Urea Nitrogen 13 mg/dL (7-23) Creatinine 0.9 mg/dL (0.5-0.9) Estimat Glomerular Filtration Rate > 60 mL/min (>60) Glucose Level 116 mg/dL (74-106) H Calcium Level 9.0 mg/dL (8.6-10.2) Total Bilirubin 0.5 mg/dL (0.0-1.2) Aspartate Amino Transf (AST/SGOT) 25 U/L (5-40) Alanine Aminotransferase (ALT/SGPT) 16 U/L (3-33) Alkaline Phosphatase 51 U/L (35-104) Total Protein 6.4 g/dL (6.6-8.7) L Albumin 3.8 g/dL (3.5-5.2) Globulin 2.6 g/dL Albumin/Globulin Ratio 1.4 (1.0-2.7) Hepatitis A IgM Antibody Pending Hepatitis B Surface Antigen Pending Hepatitis B Core IgM Antibody Pending Hepatitis C Antibody Pending Intake and Output 07/20/17 07/21/17 19:00 07:00 Intake Total 720 ml Balance 720 ml Intake Oral 720 ml # Voids 5 # Bowel Movements 2 Assessment/Plan Problem List: (1) Altered mental status (2) Schizophrenia Assessment & Plan: See psychiatry note. (3) Gravely disabled (4) Cellulitis of right ankle Assessment & Plan: Continue vancomycin per ID. (5) Psychosis Status: not improved JONATHAN FRANKLIN Jul 20, 2017 15:52
[2017-07-20 20:18] VITALS: BP 125/70
[2017-07-21] VITALS (7 sets, daily range): BP systolic 107–132; BP diastolic 60–76
[2017-07-21] MEDS: Vancomycin 750mg/NS 250ml IVPB SCH ×2 (00:13→12:35)
[2017-07-21 08:00] LABS: BASOPHILS % (AUTO) 0.9 % (0.0-2.0); LYMPHOCYTES % (AUTO) 33.9 % (20.0-45.0); MEAN CORPUSCULAR HEMOGLOBIN 29.3 PG (27.0-31.0); MEAN CORPUSCULAR HGB CONC 31.9 G/DL (32.0-36.0); MEAN CORPUSCULAR VOLUME 92 FL (80-99); MEAN PLATELET VOLUME 7.2 FL (6.5-10.1); MONOCYTES % (AUTO) 13.2 % (1.0-10.0); NEUTROPHILS % (AUTO) 47.1 % (45.0-75.0); PLATELET COUNT 273 K/UL (150-450); RED BLOOD COUNT 3.97 M/UL (4.20-5.40); RED CELL DISTRIBUTION WIDTH 11.9 % (11.6-14.8); WHITE BLOOD COUNT 5.9 K/UL (4.8-10.8)
[2017-07-21 08:30] LABS: ANION GAP 4 (5-15); CALCIUM 8.9 mg/dL (8.6-10.2); CARBON DIOXIDE 32 mEQ/L (20-30); CHLORIDE 106 mEQ/L (98-107); CREATININE 0.8 mg/dL (0.5-0.9); GLOMERULAR FILTRATION RATE > 60 mL/min (>60); HEMOLYSIS 4; POTASSIUM 4.1 mEQ/L (3.4-4.9); SODIUM 142 mEQ/L (135-145)
[2017-07-21] MEDS: Heparin 5000 units/ml inj SUBQ SCH ×2 (10:35→21:03)
--- NOTE | 2017-07-21 12:00 | Infectious Diseases Prog Note ---
Assessment/Plan Assessment/Plan A; Right foot cellulitis Psychosis P; Continue Vancomycin Subjective ROS Limited/Unobtainable: Yes Constitutional: Reports: no symptoms Respiratory: Reports: no symptoms Cardiovascular: Reports: no symptoms Gastrointestinal/Abdominal: Reports: no symptoms Musculoskeletal: Reports: no symptoms Allergies: Coded Allergies: No Known Allergies (Unverified , 07/19/17) Objective Vital Signs Last 24 Hour Vital Signs Date Time Temp Pulse Resp B/P (MAP) Pulse Ox O2 Delivery O2 Flow Rate FiO2 07/21/17 11:52 98.1 54 18 110/64 98 Room Air 07/21/17 08:14 69 16 Room Air 21 07/21/17 08:02 98.2 62 18 107/61 96 Room Air 07/21/17 04:00 98.4 85 19 132/76 95 Room Air 07/21/17 00:20 97.9 17 130/72 97 Room Air 07/20/17 20:18 98.1 63 18 125/70 98 Room Air 07/20/17 19:52 101 16 Room Air 21 07/20/17 15:45 98.4 72 20 103/55 98 Room Air Height (Feet): 5 Height (Inches): 4.00 Weight (Pounds): 125 General Appearance: no acute distress HEENT: mucous membranes moist Respiratory/Chest: chest wall non-tender Cardiovascular: normal rate Abdomen: soft, non tender Extremities: no edema Skin: other - mild erythema of foot Laboratory Tests Test 07/21/17 07:10 White Blood Count 5.9 K/UL (4.8-10.8) Red Blood Count 3.97 M/UL (4.20-5.40) L Hemoglobin 11.6 G/DL (12.0-16.0) L Hematocrit 36.5 % (37.0-47.0) L Mean Corpuscular Volume 92 FL (80-99) Mean Corpuscular Hemoglobin 29.3 PG (27.0-31.0) Mean Corpuscular Hemoglobin Concent 31.9 G/DL (32.0-36.0) L Red Cell Distribution Width 11.9 % (11.6-14.8) Platelet Count 273 K/UL (150-450) Mean Platelet Volume 7.2 FL (6.5-10.1) Neutrophils (%) (Auto) 47.1 % (45.0-75.0) Lymphocytes (%) (Auto) 33.9 % (20.0-45.0) Monocytes (%) (Auto) 13.2 % (1.0-10.0) H Eosinophils (%) (Auto) 5.0 % (0.0-3.0) H Basophils (%) (Auto) 0.9 % (0.0-2.0) Sodium Level 142 mEQ/L (135-145) Potassium Level 4.1 mEQ/L (3.4-4.9) Chloride Level 106 mEQ/L (98-107) Carbon Dioxide Level 32 mEQ/L (20-30) H Anion Gap 4 (5-15) L Blood Urea Nitrogen 10 mg/dL (7-23) Creatinine 0.8 mg/dL (0.5-0.9) Estimat Glomerular Filtration Rate > 60 mL/min (>60) Glucose Level 101 mg/dL (74-106) Calcium Level 8.9 mg/dL (8.6-10.2) HIV (1&2) Antibody Rapid Negative (NEGATIVE) Current Medications Medications (Trade) Dose Ordered Sig/Florian Route PRN Reason Start Time Stop Time Status Last Admin Dose Admin Acetaminophen (Tylenol) 650 mg Q4H PRN ORAL fever 07/19/17 00:15 08/18/17 00:14 Albuterol/ Ipratropium (DuoNeb 0.5-3(2.5)mg/3ml) 3 ml EVERY 4 HOURS PRN HHN Shortness of Breath 07/19/17 00:15 07/24/17 00:14 Clotrimazole (Lotrimin) 1 applic EVERY 12 HOURS TOPIC 07/19/17 21:00 08/18/17 20:59 07/21/17 10:34 Dextrose (Dextrose 50%) STAT PRN IV Hypoglycemia 07/19/17 00:15 08/18/17 00:14 Heparin Sodium (Porcine) (Heparin 5000 units/ml) 5,000 units EVERY 12 HOURS SUBQ 07/19/17 09:00 08/18/17 08:59 07/21/17 10:35 Morphine Sulfate (Morphine Sulfate) 2 mg EVERY 4 HOURS PRN IVP Moderate Pain (Pain Scale 4-6) 07/19/17 00:15 07/26/17 00:14 Nitroglycerin (Ntg) 0.4 mg Every 5 Minutes PRN SL Prn Chest Pain 07/19/17 00:15 08/18/17 00:14 Ondansetron HCl (Zofran) 4 mg Q6H PRN IVP Nausea & Vomiting 07/19/17 00:15 08/18/17 00:14 Polyethylene Glycol (Miralax) 17 gm DAILYPRN PRN ORAL Constipation 07/19/17 00:15 08/18/17 00:14 Risperidone (RisperDAL) 2 mg BID ORAL 07/20/17 18:00 08/18/17 20:59 Temazepam (Restoril) 15 mg HSPRN PRN ORAL Insomnia 07/19/17 00:15 07/26/17 00:14 Vancomycin HCl (Vanco rx to dose) 1 ea DAILY PRN MISC PER PROTOCOL 07/19/17 01:30 08/18/17 01:29 Vancomycin/Sodium Chloride 250 ml @ 166.667 mls/hr Q12H IVPB 07/19/17 12:00 07/24/17 11:59 07/21/17 00:13 HOLLY FORD Jul 21, 2017 12:00
--- NOTE | 2017-07-21 14:15 | Consultation ---
DATE OF CONSULTATION: 07/20/2017 CONSULTING PHYSICIAN: Domingo Womack M.D. History Of Present Illness: The patient is a 32-year-old female, who was brought by EMS to this medical center after the patient was found confused on the street. The patient speaks Panamanian, overall is poor historian even through a undercar specialist. The patient was found to have right lower extremity cellulitis. Infectious Diseases consultation has been requested for further evaluation of the patient and antibiotic management. PAST MEDICAL HISTORY: Unknown. PAST SURGICAL HISTORY: Unknown. MEDICATIONS: IV vancomycin and cefepime. ALLERGIES: No known drug allergies. SOCIAL HISTORY: Unknown. PHYSICAL EXAMINATION: Vital Signs: Temperature 97 degrees, pulse 86, and blood pressure 112/18. HEENT: No pale conjunctiva. No icterus. NECK: No lymphadenopathy. CHEST: Clear. HEART: S1 and S2. ABDOMEN: Soft. EXTREMITIES: The patient has erythema of the right foot. NEUROLOGIC: Awake, confused. Laboratory And Diagnostic Data: White blood cells at the time of admission was 21, today is 7.4, hemoglobin 12.3, and platelets 272,000. UA unremarkable. Liver function tests unremarkable. Urine toxicology for marijuana is positive. Ankle x-ray, soft tissue swelling. Assessment: The patient is a 32-year-old female, who is confused and we do not have the patient's name, detailed information of the patient, and past medical history. The patient has: 1. Right lower extremity cellulitis. 2. Status post leukocytosis. 3. Urine toxicology positive for marijuana. 4. Rule out human immunodeficiency virus and hepatitis in the patient. PLAN: 1. We will continue the patient on IV vancomycin. We will hold IV cefepime. 2. Monitor CBC. 3. Monitor BMP. 4. Monitor blood culture. 5. Human immunodeficiency virus serology. 6. Hepatitis panel. 7. We will monitor the patient's clinical course and laboratories and based on those, we will do further recommendation. Thank you, Dr. Martinez and Dr. Aguilar, for allowing me to participate in the care of this patient. I will follow the patient with you during this hospitalization. Domingo Womack M.D. DR: Wallace JOB#: [id number] CC:
--- NOTE | 2017-07-21 14:22 | Internal Med Progress Note ---
Subjective Date of Service: Jul 21, 2017 Physician Name Jonathan Franklin Attending Physician Von Subramanian MD Current Medications Medications (Trade) Dose Ordered Sig/Florian Route PRN Reason Start Time Stop Time Status Last Admin Dose Admin Acetaminophen (Tylenol) 650 mg Q4H PRN ORAL fever 07/19/17 00:15 08/18/17 00:14 Albuterol/ Ipratropium (DuoNeb 0.5-3(2.5)mg/3ml) 3 ml EVERY 4 HOURS PRN HHN Shortness of Breath 07/19/17 00:15 07/24/17 00:14 Clotrimazole (Lotrimin) 1 applic EVERY 12 HOURS TOPIC 07/19/17 21:00 08/18/17 20:59 07/21/17 10:34 Dextrose (Dextrose 50%) STAT PRN IV Hypoglycemia 07/19/17 00:15 08/18/17 00:14 Heparin Sodium (Porcine) (Heparin 5000 units/ml) 5,000 units EVERY 12 HOURS SUBQ 07/19/17 09:00 08/18/17 08:59 07/21/17 10:35 Morphine Sulfate (Morphine Sulfate) 2 mg EVERY 4 HOURS PRN IVP Moderate Pain (Pain Scale 4-6) 07/19/17 00:15 07/26/17 00:14 Nitroglycerin (Ntg) 0.4 mg Every 5 Minutes PRN SL Prn Chest Pain 07/19/17 00:15 08/18/17 00:14 Ondansetron HCl (Zofran) 4 mg Q6H PRN IVP Nausea & Vomiting 07/19/17 00:15 08/18/17 00:14 Polyethylene Glycol (Miralax) 17 gm DAILYPRN PRN ORAL Constipation 07/19/17 00:15 08/18/17 00:14 Risperidone (RisperDAL) 2 mg BID ORAL 07/20/17 18:00 08/18/17 20:59 Temazepam (Restoril) 15 mg HSPRN PRN ORAL Insomnia 07/19/17 00:15 07/26/17 00:14 Vancomycin HCl (Vanco rx to dose) 1 ea DAILY PRN MISC PER PROTOCOL 07/19/17 01:30 08/18/17 01:29 Vancomycin/Sodium Chloride 250 ml @ 166.667 mls/hr Q12H IVPB 07/19/17 12:00 07/24/17 11:59 07/21/17 12:35 Allergies: Coded Allergies: No Known Allergies (Unverified , 07/19/17) ROS Limited/Unobtainable: Yes Subjective 32 YO F admitted with altered mental status. Now cellulitis right foot and Psycosis. Cover for Int Med-Dr Subramanian. Refusing meds. Agitated; requires 1:1 sitter Objective Last Vital Signs Date Time Temp Pulse Resp B/P (MAP) Pulse Ox O2 Delivery O2 Flow Rate FiO2 07/21/17 11:52 98.1 54 18 110/64 98 Room Air 07/21/17 08:14 21 Laboratory Tests Test 07/21/17 07:10 White Blood Count 5.9 K/UL (4.8-10.8) Red Blood Count 3.97 M/UL (4.20-5.40) L Hemoglobin 11.6 G/DL (12.0-16.0) L Hematocrit 36.5 % (37.0-47.0) L Mean Corpuscular Volume 92 FL (80-99) Mean Corpuscular Hemoglobin 29.3 PG (27.0-31.0) Mean Corpuscular Hemoglobin Concent 31.9 G/DL (32.0-36.0) L Red Cell Distribution Width 11.9 % (11.6-14.8) Platelet Count 273 K/UL (150-450) Mean Platelet Volume 7.2 FL (6.5-10.1) Neutrophils (%) (Auto) 47.1 % (45.0-75.0) Lymphocytes (%) (Auto) 33.9 % (20.0-45.0) Monocytes (%) (Auto) 13.2 % (1.0-10.0) H Eosinophils (%) (Auto) 5.0 % (0.0-3.0) H Basophils (%) (Auto) 0.9 % (0.0-2.0) Sodium Level 142 mEQ/L (135-145) Potassium Level 4.1 mEQ/L (3.4-4.9) Chloride Level 106 mEQ/L (98-107) Carbon Dioxide Level 32 mEQ/L (20-30) H Anion Gap 4 (5-15) L Blood Urea Nitrogen 10 mg/dL (7-23) Creatinine 0.8 mg/dL (0.5-0.9) Estimat Glomerular Filtration Rate > 60 mL/min (>60) Glucose Level 101 mg/dL (74-106) Calcium Level 8.9 mg/dL (8.6-10.2) HIV (1&2) Antibody Rapid Negative (NEGATIVE) Objective General Appearance: WD/WN, no apparent distress, alert EENT: PERRL/EOMI, normal ENT inspection Neck: non-tender, normal alignment, supple, normal inspection Cardiovascular: normal peripheral pulses, normal rate, regular rhythm, no gallop/murmur, no JVD Respiratory/Chest: chest wall non-tender, lungs clear, normal breath sounds, no respiratory distress, no accessory muscle use Abdomen: normal bowel sounds, non tender, soft, no organomegaly, no mass Extremities: normal range of motion Neurologic: identity management consultant II-XII grossly normal, no motor/sensory deficits Skin: normal pigmentation, warm/dry Assessment/Plan Problem List: (1) Altered mental status (2) Schizophrenia Assessment & Plan: See psychiatry note. (3) Gravely disabled (4) Cellulitis of right ankle Assessment & Plan: Continue vancomycin per ID. (5) Psychosis Status: not improved JONATHAN FRANKLIN Jul 21, 2017 14:22
--- NOTE | 2017-07-21 16:21 | Pulmonology Progress Note ---
Assessment/Plan Problems: (1) Acute encephalopathy (2) Cellulitis of right ankle (3) Psychosis Assessment/Plan Level of conciousness improved Mentation improved Continue broad spectrum antbx Pain management Anti-inflammatories Tolerating feeding Aspiration precautions Subjective ROS Limited/Unobtainable: No Constitutional: Reports: fatigue, anorexia Musculoskeletal: Reports: pain, swelling, stiffness Allergies: Coded Allergies: No Known Allergies (Unverified , 07/19/17) Objective Last 24 Hour Vital Signs Date Time Temp Pulse Resp B/P (MAP) Pulse Ox O2 Delivery O2 Flow Rate FiO2 07/21/17 11:52 98.1 54 18 110/64 98 Room Air 07/21/17 08:14 69 16 Room Air 21 07/21/17 08:02 98.2 62 18 107/61 96 Room Air 07/21/17 04:00 98.4 85 19 132/76 95 Room Air 07/21/17 00:20 97.9 17 130/72 97 Room Air 07/20/17 20:18 98.1 63 18 125/70 98 Room Air 07/20/17 19:52 101 16 Room Air 21 Objective General Appearance: no acute distress HEENT: normocephalic, atraumatic, PERRL Respiratory/Chest: chest wall non-tender, lungs clear, normal breath sounds Breasts: no masses Cardiovascular: normal peripheral pulses, normal rate, regular rhythm, no JVD Abdomen: normal bowel sounds, soft, non tender, no organomegaly, non distended Genitourinary: normal external genitalia Extremities: no cyanosis, other - Right lower ankle highly edematous and erythematous Neurologic/Psychiatric: money market dealer II-XII grossly normal, no motor/sensory deficits Laboratory Tests 07/21/17 07:10: White Blood Count 5.9, Red Blood Count 3.97L, Hemoglobin 11.6L, Hematocrit 36.5L , Mean Corpuscular Volume 92, Mean Corpuscular Hemoglobin 29.3, Mean Corpuscular Hemoglobin Concent 31.9L, Red Cell Distribution Width 11.9, Platelet Count 273, Mean Platelet Volume 7.2, Neutrophils (%) (Auto) 47.1, Lymphocytes (%) (Auto) 33.9, Monocytes (%) (Auto) 13.2H, Eosinophils (%) (Auto) 5.0H, Basophils (%) (Auto) 0.9, Sodium Level 142, Potassium Level 4.1, Chloride Level 106, Carbon Dioxide Level 32H, Anion Gap 4L, Blood Urea Nitrogen 10, Creatinine 0.8, Estimat Glomerular Filtration Rate > 60, Glucose Level 101, Calcium Level 8.9, HIV (1&2) Antibody Rapid Negative Current Medications Medications (Trade) Dose Ordered Sig/Florian Route PRN Reason Start Time Stop Time Status Last Admin Dose Admin Acetaminophen (Tylenol) 650 mg Q4H PRN ORAL fever 07/19/17 00:15 08/18/17 00:14 Albuterol/ Ipratropium (DuoNeb 0.5-3(2.5)mg/3ml) 3 ml EVERY 4 HOURS PRN HHN Shortness of Breath 07/19/17 00:15 07/24/17 00:14 Clotrimazole (Lotrimin) 1 applic EVERY 12 HOURS TOPIC 07/19/17 21:00 08/18/17 20:59 07/21/17 10:34 Dextrose (Dextrose 50%) STAT PRN IV Hypoglycemia 07/19/17 00:15 08/18/17 00:14 Heparin Sodium (Porcine) (Heparin 5000 units/ml) 5,000 units EVERY 12 HOURS SUBQ 07/19/17 09:00 08/18/17 08:59 07/21/17 10:35 Morphine Sulfate (Morphine Sulfate) 2 mg EVERY 4 HOURS PRN IVP Moderate Pain (Pain Scale 4-6) 07/19/17 00:15 07/26/17 00:14 Nitroglycerin (Ntg) 0.4 mg Every 5 Minutes PRN SL Prn Chest Pain 07/19/17 00:15 08/18/17 00:14 Ondansetron HCl (Zofran) 4 mg Q6H PRN IVP Nausea & Vomiting 07/19/17 00:15 08/18/17 00:14 Polyethylene Glycol (Miralax) 17 gm DAILYPRN PRN ORAL Constipation 07/19/17 00:15 08/18/17 00:14 Risperidone (RisperDAL) 2 mg BID ORAL 07/20/17 18:00 08/18/17 20:59 Temazepam (Restoril) 15 mg HSPRN PRN ORAL Insomnia 07/19/17 00:15 07/26/17 00:14 Vancomycin HCl (Vanco rx to dose) 1 ea DAILY PRN MISC PER PROTOCOL 07/19/17 01:30 08/18/17 01:29 Vancomycin/Sodium Chloride 250 ml @ 166.667 mls/hr Q12H IVPB 07/19/17 12:00 07/24/17 11:59 07/21/17 12:35 SAMI CHILDS Jul 21, 2017 16:21
--- NOTE | 2017-07-21 16:38 | General Progress Note ---
Assessment/Plan Status: unchanged Assessment/Plan schizophrenia -pet eval -psych ivey Subjective Date patient seen: Jul 20, 2017 Constitutional: Reports: malaise, weakness Neurologic/Psychiatric: Reports: anxiety, depressed, emotional problems Allergies: Coded Allergies: No Known Allergies (Unverified , 07/19/17) Subjective the pt is psychotic and is delusional. I was told that she takes her risperdal. per records she refuses. the pt stated that she wants to kill herself. does not cooperate Objective Last 24 Hour Vital Signs Date Time Temp Pulse Resp B/P (MAP) Pulse Ox O2 Delivery O2 Flow Rate FiO2 07/21/17 11:52 98.1 54 18 110/64 98 Room Air 07/21/17 08:14 69 16 Room Air 21 07/21/17 08:02 98.2 62 18 107/61 96 Room Air 07/21/17 04:00 98.4 85 19 132/76 95 Room Air 07/21/17 00:20 97.9 17 130/72 97 Room Air 07/20/17 20:18 98.1 63 18 125/70 98 Room Air 07/20/17 19:52 101 16 Room Air 21 Laboratory Tests 07/21/17 07:10: White Blood Count 5.9, Red Blood Count 3.97L, Hemoglobin 11.6L, Hematocrit 36.5L , Mean Corpuscular Volume 92, Mean Corpuscular Hemoglobin 29.3, Mean Corpuscular Hemoglobin Concent 31.9L, Red Cell Distribution Width 11.9, Platelet Count 273, Mean Platelet Volume 7.2, Neutrophils (%) (Auto) 47.1, Lymphocytes (%) (Auto) 33.9, Monocytes (%) (Auto) 13.2H, Eosinophils (%) (Auto) 5.0H, Basophils (%) (Auto) 0.9, Sodium Level 142, Potassium Level 4.1, Chloride Level 106, Carbon Dioxide Level 32H, Anion Gap 4L, Blood Urea Nitrogen 10, Creatinine 0.8, Estimat Glomerular Filtration Rate > 60, Glucose Level 101, Calcium Level 8.9, HIV (1&2) Antibody Rapid Negative Height (Feet): 5 Height (Inches): 4.00 Weight (Pounds): 125 General Appearance: no apparent distress, alert, thin Neurologic: alert, responsive, depressed affect Farhadi,Pantea M.D. Jul 21, 2017 16:38
[2017-07-21] MEDS ORDERED: Haloperidol Decanoate 50mg Inj IM ONE (17:00)
[2017-07-22] VITALS: BP 105/58
[2017-07-22] MEDS: Vancomycin 750mg/NS 250ml IVPB SCH ×5 (00:24→23:39)
[2017-07-22 04:00] VITALS: BP 114/60
[2017-07-22 06:33] LABS: EOSINOPHILS % (AUTO) 5.5 % (0.0-3.0); LYMPHOCYTES % (AUTO) 40.6 % (20.0-45.0); MEAN CORPUSCULAR HGB CONC 33.4 G/DL (32.0-36.0); MEAN CORPUSCULAR VOLUME 93 FL (80-99); MEAN PLATELET VOLUME 7.4 FL (6.5-10.1); MONOCYTES % (AUTO) 10.3 % (1.0-10.0); NEUTROPHILS % (AUTO) 42.6 % (45.0-75.0); PLATELET COUNT 291 K/UL (150-450); WHITE BLOOD COUNT 6.6 K/UL (4.8-10.8)
[2017-07-22 06:50] LABS: ANION GAP 8 (5-15); CARBON DIOXIDE 33 mEQ/L (20-30); CHLORIDE 104 mEQ/L (98-107); CREATININE 0.7 mg/dL (0.5-0.9); GLOMERULAR FILTRATION RATE > 60 mL/min (>60); HEMOLYSIS 0; POTASSIUM 4.4 mEQ/L (3.4-4.9); SODIUM 145 mEQ/L (135-145)
[2017-07-22 08:00] VITALS: BP 102/56
[2017-07-22] MEDS: Heparin 5000 units/ml inj SUBQ SCH ×2 (08:20→20:55)
--- NOTE | 2017-07-22 11:13 | Internal Med Progress Note ---
Subjective Date of Service: Jul 22, 2017 Physician Name Jonathan Franklin Attending Physician Von Subramanian MD Current Medications Medications (Trade) Dose Ordered Sig/Florian Route PRN Reason Start Time Stop Time Status Last Admin Dose Admin Acetaminophen (Tylenol) 650 mg Q4H PRN ORAL fever 07/19/17 00:15 08/18/17 00:14 Albuterol/ Ipratropium (DuoNeb 0.5-3(2.5)mg/3ml) 3 ml EVERY 4 HOURS PRN HHN Shortness of Breath 07/19/17 00:15 07/24/17 00:14 Clotrimazole (Lotrimin) 1 applic EVERY 12 HOURS TOPIC 07/19/17 21:00 08/18/17 20:59 07/22/17 08:26 Dextrose (Dextrose 50%) STAT PRN IV Hypoglycemia 07/19/17 00:15 08/18/17 00:14 Heparin Sodium (Porcine) (Heparin 5000 units/ml) 5,000 units EVERY 12 HOURS SUBQ 07/19/17 09:00 08/18/17 08:59 07/21/17 21:03 Morphine Sulfate (Morphine Sulfate) 2 mg EVERY 4 HOURS PRN IVP Moderate Pain (Pain Scale 4-6) 07/19/17 00:15 07/26/17 00:14 Nitroglycerin (Ntg) 0.4 mg Every 5 Minutes PRN SL Prn Chest Pain 07/19/17 00:15 08/18/17 00:14 Ondansetron HCl (Zofran) 4 mg Q6H PRN IVP Nausea & Vomiting 07/19/17 00:15 08/18/17 00:14 Polyethylene Glycol (Miralax) 17 gm DAILYPRN PRN ORAL Constipation 07/19/17 00:15 08/18/17 00:14 Risperidone (RisperDAL) 2 mg BID ORAL 07/20/17 18:00 08/18/17 20:59 Temazepam (Restoril) 15 mg HSPRN PRN ORAL Insomnia 07/19/17 00:15 07/26/17 00:14 Vancomycin HCl (Vanco rx to dose) 1 ea DAILY PRN MISC PER PROTOCOL 07/19/17 01:30 08/18/17 01:29 Vancomycin/Sodium Chloride 250 ml @ 166.667 mls/hr Q8H IVPB 07/22/17 08:00 07/27/17 07:59 Allergies: Coded Allergies: No Known Allergies (Unverified , 07/19/17) ROS Limited/Unobtainable: Yes Subjective 32 YO F admitted with altered mental status. Now cellulitis right foot and Psycosis. Cover for Int Med-Dr Subramanian. Refusing meds. Paranoid and Agitated; requires 1:1 sitter. Refusing all meds. Objective Last Vital Signs Date Time Temp Pulse Resp B/P (MAP) Pulse Ox O2 Delivery O2 Flow Rate FiO2 07/22/17 08:00 98.1 60 17 102/56 99 Room Air 07/22/17 07:45 21 Laboratory Tests Test 07/21/17 23:00 07/22/17 05:40 Vancomycin Level Trough 6.3 ug/mL (5.0-12.0) White Blood Count 6.6 K/UL (4.8-10.8) Red Blood Count 4.00 M/UL (4.20-5.40) L Hemoglobin 12.4 G/DL (12.0-16.0) Hematocrit 37.3 % (37.0-47.0) Mean Corpuscular Volume 93 FL (80-99) Mean Corpuscular Hemoglobin 31.0 PG (27.0-31.0) Mean Corpuscular Hemoglobin Concent 33.4 G/DL (32.0-36.0) Red Cell Distribution Width 12.0 % (11.6-14.8) Platelet Count 291 K/UL (150-450) Mean Platelet Volume 7.4 FL (6.5-10.1) Neutrophils (%) (Auto) 42.6 % (45.0-75.0) L Lymphocytes (%) (Auto) 40.6 % (20.0-45.0) Monocytes (%) (Auto) 10.3 % (1.0-10.0) H Eosinophils (%) (Auto) 5.5 % (0.0-3.0) H Basophils (%) (Auto) 1.0 % (0.0-2.0) Sodium Level 145 mEQ/L (135-145) Potassium Level 4.4 mEQ/L (3.4-4.9) Chloride Level 104 mEQ/L (98-107) Carbon Dioxide Level 33 mEQ/L (20-30) H Anion Gap 8 (5-15) Blood Urea Nitrogen 8 mg/dL (7-23) Creatinine 0.7 mg/dL (0.5-0.9) Estimat Glomerular Filtration Rate > 60 mL/min (>60) Glucose Level 91 mg/dL (74-106) Calcium Level 9.0 mg/dL (8.6-10.2) Microbiology Date/Time Source Procedure Growth Status 07/20/17 17:40 Blood Blood Culture - Preliminary NO GROWTH AFTER 24 HOURS Resulted 07/20/17 17:40 Blood Blood Culture - Preliminary NO GROWTH AFTER 24 HOURS Resulted Objective General Appearance: WD/WN, no apparent distress, alert EENT: PERRL/EOMI, normal ENT inspection Neck: non-tender, normal alignment, supple, normal inspection Cardiovascular: normal peripheral pulses, normal rate, regular rhythm, no gallop/murmur, no JVD Respiratory/Chest: chest wall non-tender, lungs clear, normal breath sounds, no respiratory distress, no accessory muscle use Abdomen: normal bowel sounds, non tender, soft, no organomegaly, no mass Extremities: normal range of motion 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 (3) Gravely disabled (4) Cellulitis of right ankle Assessment & Plan: Continue vancomycin per ID. (5) Psychosis (6) Noncompliance with medication regimen Status: not improved Assessment/Plan Transfer to inpatient psych unit per Psychiatry JONATHAN FRANKLIN Jul 22, 2017 11:13
[2017-07-22 12:00] VITALS: BP 112/61
--- NOTE | 2017-07-22 12:55 | Diagnostic Imaging Report ---
APPROVED REPORT CPT Code: 00898 Present Symptoms Comments: R/O DVT The left big toe has a laceration BILATERAL: Imaging reveals a patent deep venous system bilaterally. There is no evidence of thrombus within the femoral, popliteal or tibial segments. The greater saphenous veins are also within normal limits. Doppler indicates normal spontaneous flow within these segments.
--- NOTE | 2017-07-22 14:24 | Infectious Diseases Prog Note ---
Assessment/Plan Assessment/Plan A; Right foot cellulitis -bcx NTD -venous duplex BLE: no DVT leukocytosis(up to 21)- resolved Psychosis +UDS for marijuana HIV neg P; Continue Vancomycin #4/5 -if discharge, can finish course with keflex 500mg bid -Monitor CBC/BMP, temperatures -f/u cx -f/u hep serologies -leg elevation Discussed with RN. Subjective Allergies: Coded Allergies: No Known Allergies (Unverified , 07/19/17) Subjective afebrile cellulitis improving Objective Vital Signs Last 24 Hour Vital Signs Date Time Temp Pulse Resp B/P (MAP) Pulse Ox O2 Delivery O2 Flow Rate FiO2 07/22/17 08:00 98.1 60 17 102/56 99 Room Air 07/22/17 07:45 72 16 Room Air 21 07/22/17 04:00 98.0 60 18 114/60 99 Room Air 07/22/17 00:00 98.2 60 18 105/58 98 Room Air 07/21/17 21:20 84 16 Room Air 21 07/21/17 20:00 98.2 61 18 108/63 98 Room Air 07/21/17 16:00 98.4 60 18 107/60 98 Room Air Height (Feet): 5 Height (Inches): 4.00 Weight (Pounds): 125 Objective HEENT: No pale conjunctiva. No icterus. NECK: No lymphadenopathy. CHEST: Clear. HEART: S1 and S2. ABDOMEN: Soft. EXTREMITIES: The patient has erythema of the right footl resolving. NEUROLOGIC: Awake, confused. Microbiology Date/Time Source Procedure Growth Status 07/20/17 17:40 Blood Blood Culture - Preliminary NO GROWTH AFTER 24 HOURS Resulted 07/20/17 17:40 Blood Blood Culture - Preliminary NO GROWTH AFTER 24 HOURS Resulted Laboratory Tests Test 07/21/17 23:00 07/22/17 05:40 Vancomycin Level Trough 6.3 ug/mL (5.0-12.0) White Blood Count 6.6 K/UL (4.8-10.8) Red Blood Count 4.00 M/UL (4.20-5.40) L Hemoglobin 12.4 G/DL (12.0-16.0) Hematocrit 37.3 % (37.0-47.0) Mean Corpuscular Volume 93 FL (80-99) Mean Corpuscular Hemoglobin 31.0 PG (27.0-31.0) Mean Corpuscular Hemoglobin Concent 33.4 G/DL (32.0-36.0) Red Cell Distribution Width 12.0 % (11.6-14.8) Platelet Count 291 K/UL (150-450) Mean Platelet Volume 7.4 FL (6.5-10.1) Neutrophils (%) (Auto) 42.6 % (45.0-75.0) L Lymphocytes (%) (Auto) 40.6 % (20.0-45.0) Monocytes (%) (Auto) 10.3 % (1.0-10.0) H Eosinophils (%) (Auto) 5.5 % (0.0-3.0) H Basophils (%) (Auto) 1.0 % (0.0-2.0) Sodium Level 145 mEQ/L (135-145) Potassium Level 4.4 mEQ/L (3.4-4.9) Chloride Level 104 mEQ/L (98-107) Carbon Dioxide Level 33 mEQ/L (20-30) H Anion Gap 8 (5-15) Blood Urea Nitrogen 8 mg/dL (7-23) Creatinine 0.7 mg/dL (0.5-0.9) Estimat Glomerular Filtration Rate > 60 mL/min (>60) Glucose Level 91 mg/dL (74-106) Calcium Level 9.0 mg/dL (8.6-10.2) Current Medications Medications (Trade) Dose Ordered Sig/Florian Route PRN Reason Start Time Stop Time Status Last Admin Dose Admin Acetaminophen (Tylenol) 650 mg Q4H PRN ORAL fever 07/19/17 00:15 08/18/17 00:14 Albuterol/ Ipratropium (DuoNeb 0.5-3(2.5)mg/3ml) 3 ml EVERY 4 HOURS PRN HHN Shortness of Breath 07/19/17 00:15 07/24/17 00:14 Clotrimazole (Lotrimin) 1 applic EVERY 12 HOURS TOPIC 07/19/17 21:00 08/18/17 20:59 07/22/17 08:26 Dextrose (Dextrose 50%) STAT PRN IV Hypoglycemia 07/19/17 00:15 08/18/17 00:14 Heparin Sodium (Porcine) (Heparin 5000 units/ml) 5,000 units EVERY 12 HOURS SUBQ 07/19/17 09:00 08/18/17 08:59 07/21/17 21:03 Morphine Sulfate (Morphine Sulfate) 2 mg EVERY 4 HOURS PRN IVP Moderate Pain (Pain Scale 4-6) 07/19/17 00:15 07/26/17 00:14 Nitroglycerin (Ntg) 0.4 mg Every 5 Minutes PRN SL Prn Chest Pain 07/19/17 00:15 08/18/17 00:14 Ondansetron HCl (Zofran) 4 mg Q6H PRN IVP Nausea & Vomiting 07/19/17 00:15 08/18/17 00:14 Polyethylene Glycol (Miralax) 17 gm DAILYPRN PRN ORAL Constipation 07/19/17 00:15 08/18/17 00:14 Risperidone (RisperDAL) 2 mg BID ORAL 07/20/17 18:00 08/18/17 20:59 Temazepam (Restoril) 15 mg HSPRN PRN ORAL Insomnia 07/19/17 00:15 07/26/17 00:14 Vancomycin HCl (Vanco rx to dose) 1 ea DAILY PRN MISC PER PROTOCOL 07/19/17 01:30 08/18/17 01:29 Vancomycin/Sodium Chloride 250 ml @ 166.667 mls/hr Q8H IVPB 07/22/17 08:00 07/27/17 07:59 Savana Valles M.D. Jul 22, 2017 14:24
--- NOTE | 2017-07-22 19:27 | Pulmonology Progress Note ---
Assessment/Plan Problems: (1) Acute encephalopathy (2) Cellulitis of right ankle (3) Psychosis Assessment/Plan Continue broad spectrum antibiotics Tolerating feeding Wound care Pain management PT/OT as tolerated Subjective Constitutional: Reports: fatigue, anorexia Musculoskeletal: Reports: pain, swelling, stiffness Allergies: Coded Allergies: No Known Allergies (Unverified , 07/19/17) Objective Last 24 Hour Vital Signs Date Time Temp Pulse Resp B/P (MAP) Pulse Ox O2 Delivery O2 Flow Rate FiO2 07/22/17 12:00 98.3 62 18 112/61 98 Room Air 07/22/17 08:00 98.1 60 17 102/56 99 Room Air 07/22/17 07:45 72 16 Room Air 21 07/22/17 04:00 98.0 60 18 114/60 99 Room Air 07/22/17 00:00 98.2 60 18 105/58 98 Room Air 07/21/17 21:20 84 16 Room Air 21 07/21/17 20:00 98.2 61 18 108/63 98 Room Air Intake and Output 07/22/17 07/23/17 19:00 07:00 Intake Total 1700 ml Balance 1700 ml Intake Oral 1700 ml # Voids 5 # Bowel Movements 1 Objective General Appearance: no acute distress HEENT: normocephalic, atraumatic, PERRL Respiratory/Chest: chest wall non-tender, lungs clear, normal breath sounds Breasts: no masses Cardiovascular: normal peripheral pulses, normal rate, regular rhythm, no JVD Abdomen: normal bowel sounds, soft, non tender, no organomegaly, non distended Genitourinary: normal external genitalia Extremities: no cyanosis, other - Right lower ankle highly edematous and erythematous 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, no motor/sensory deficits Microbiology Date/Time Source Procedure Growth Status 07/20/17 17:40 Blood Blood Culture - Preliminary NO GROWTH AFTER 24 HOURS Resulted 07/20/17 17:40 Blood Blood Culture - Preliminary NO GROWTH AFTER 24 HOURS Resulted Laboratory Tests 07/21/17 23:00: Vancomycin Level Trough 6.3 07/22/17 05:40: White Blood Count 6.6, Red Blood Count 4.00L, Hemoglobin 12.4, Hematocrit 37.3, Mean Corpuscular Volume 93, Mean Corpuscular Hemoglobin 31.0, Mean Corpuscular Hemoglobin Concent 33.4, Red Cell Distribution Width 12.0, Platelet Count 291, Mean Platelet Volume 7.4, Neutrophils (%) (Auto) 42.6L, Lymphocytes (%) (Auto) 40.6, Monocytes (%) (Auto) 10.3H, Eosinophils (%) (Auto) 5.5H, Basophils (%) ( Auto) 1.0, Sodium Level 145, Potassium Level 4.4, Chloride Level 104, Carbon Dioxide Level 33H, Anion Gap 8, Blood Urea Nitrogen 8, Creatinine 0.7, Estimat Glomerular Filtration Rate > 60, Glucose Level 91, Calcium Level 9.0 Current Medications Medications (Trade) Dose Ordered Sig/Florian Route PRN Reason Start Time Stop Time Status Last Admin Dose Admin Acetaminophen (Tylenol) 650 mg Q4H PRN ORAL fever 07/19/17 00:15 08/18/17 00:14 Albuterol/ Ipratropium (DuoNeb 0.5-3(2.5)mg/3ml) 3 ml EVERY 4 HOURS PRN HHN Shortness of Breath 07/19/17 00:15 07/24/17 00:14 Clotrimazole (Lotrimin) 1 applic EVERY 12 HOURS TOPIC 07/19/17 21:00 08/18/17 20:59 07/22/17 08:26 Dextrose (Dextrose 50%) STAT PRN IV Hypoglycemia 07/19/17 00:15 08/18/17 00:14 Heparin Sodium (Porcine) (Heparin 5000 units/ml) 5,000 units EVERY 12 HOURS SUBQ 07/19/17 09:00 08/18/17 08:59 07/21/17 21:03 Morphine Sulfate (Morphine Sulfate) 2 mg EVERY 4 HOURS PRN IVP Moderate Pain (Pain Scale 4-6) 07/19/17 00:15 07/26/17 00:14 Nitroglycerin (Ntg) 0.4 mg Every 5 Minutes PRN SL Prn Chest Pain 07/19/17 00:15 08/18/17 00:14 Ondansetron HCl (Zofran) 4 mg Q6H PRN IVP Nausea & Vomiting 07/19/17 00:15 08/18/17 00:14 Polyethylene Glycol (Miralax) 17 gm DAILYPRN PRN ORAL Constipation 07/19/17 00:15 08/18/17 00:14 Risperidone (RisperDAL) 2 mg BID ORAL 07/20/17 18:00 08/18/17 20:59 Temazepam (Restoril) 15 mg HSPRN PRN ORAL Insomnia 07/19/17 00:15 07/26/17 00:14 Vancomycin HCl (Vanco rx to dose) 1 ea DAILY PRN MISC PER PROTOCOL 07/19/17 01:30 08/18/17 01:29 Vancomycin/Sodium Chloride 250 ml @ 166.667 mls/hr Q8H IVPB 07/22/17 08:00 07/27/17 07:59 SAMI CHILDS Jul 22, 2017 19:27
--- NOTE | 2017-07-22 19:38 | General Progress Note ---
Assessment/Plan Assessment/Plan schizophrenia -haldol dec given over the weekend -february dc if less psychotic Subjective Allergies: Coded Allergies: No Known Allergies (Unverified , 07/19/17) Subjective the pt is psychotic and is delusional. 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 Objective Last 24 Hour Vital Signs Date Time Temp Pulse Resp B/P (MAP) Pulse Ox O2 Delivery O2 Flow Rate FiO2 07/22/17 12:00 98.3 62 18 112/61 98 Room Air 07/22/17 08:00 98.1 60 17 102/56 99 Room Air 07/22/17 07:45 72 16 Room Air 21 07/22/17 04:00 98.0 60 18 114/60 99 Room Air 07/22/17 00:00 98.2 60 18 105/58 98 Room Air 07/21/17 21:20 84 16 Room Air 21 07/21/17 20:00 98.2 61 18 108/63 98 Room Air Intake and Output 07/22/17 07/23/17 19:00 07:00 Intake Total 1700 ml Balance 1700 ml Intake Oral 1700 ml # Voids 5 # Bowel Movements 1 Laboratory Tests 07/21/17 23:00: Vancomycin Level Trough 6.3 07/22/17 05:40: White Blood Count 6.6, Red Blood Count 4.00L, Hemoglobin 12.4, Hematocrit 37.3, Mean Corpuscular Volume 93, Mean Corpuscular Hemoglobin 31.0, Mean Corpuscular Hemoglobin Concent 33.4, Red Cell Distribution Width 12.0, Platelet Count 291, Mean Platelet Volume 7.4, Neutrophils (%) (Auto) 42.6L, Lymphocytes (%) (Auto) 40.6, Monocytes (%) (Auto) 10.3H, Eosinophils (%) (Auto) 5.5H, Basophils (%) ( Auto) 1.0, Sodium Level 145, Potassium Level 4.4, Chloride Level 104, Carbon Dioxide Level 33H, Anion Gap 8, Blood Urea Nitrogen 8, Creatinine 0.7, Estimat Glomerular Filtration Rate > 60, Glucose Level 91, Calcium Level 9.0 Height (Feet): 5 Height (Inches): 4.00 Weight (Pounds): 125 General Appearance: no apparent distress, alert, thin Neurologic: alert, oriented x 3, responsive, depressed affect Farhadi,Pantea M.D. Jul 22, 2017 19:38
[2017-07-22 20:00] VITALS: BP 109/54
[2017-07-23 00:04] VITALS: BP 107/56
[2017-07-23 07:15] LABS: BASOPHILS % (AUTO) 1.3 % (0.0-2.0); LYMPHOCYTES % (AUTO) 31.5 % (20.0-45.0); MEAN CORPUSCULAR HEMOGLOBIN 30.3 PG (27.0-31.0); MEAN CORPUSCULAR HGB CONC 32.7 G/DL (32.0-36.0); MEAN CORPUSCULAR VOLUME 93 FL (80-99); MEAN PLATELET VOLUME 6.3 FL (6.5-10.1); MONOCYTES % (AUTO) 11.2 % (1.0-10.0); NEUTROPHILS % (AUTO) 49.9 % (45.0-75.0); PLATELET COUNT 285 K/UL (150-450); RED BLOOD COUNT 3.96 M/UL (4.20-5.40); WHITE BLOOD COUNT 6.4 K/UL (4.8-10.8)
[2017-07-23 07:50] LABS: ANION GAP 9 (5-15); CALCIUM 9.1 mg/dL (8.6-10.2); CARBON DIOXIDE 29 mEQ/L (20-30); CHLORIDE 104 mEQ/L (98-107); CREATININE 0.8 mg/dL (0.5-0.9); GLOMERULAR FILTRATION RATE > 60 mL/min (>60); HEMOLYSIS 1; POTASSIUM 4.2 mEQ/L (3.4-4.9); SODIUM 142 mEQ/L (135-145)
[2017-07-23] MEDS: Vancomycin 750mg/NS 250ml IVPB SCH ×2 (08:00→16:00)
[2017-07-23 08:10] VITALS: BP 109/61
[2017-07-23] MEDS: Heparin 5000 units/ml inj SUBQ SCH ×3 (09:21→20:51)
[2017-07-23 11:36] VITALS: BP 112/59
[2017-07-23 15:35] VITALS: BP 99/54
--- NOTE | 2017-07-23 17:47 | Internal Med Progress Note ---
Subjective Date of Service: Jul 23, 2017 Physician Name Jonathan Franklin Attending Physician Von Subramanian MD Current Medications Medications (Trade) Dose Ordered Sig/Florian Route PRN Reason Start Time Stop Time Status Last Admin Dose Admin Acetaminophen (Tylenol) 650 mg Q4H PRN ORAL fever 07/19/17 00:15 08/18/17 00:14 Albuterol/ Ipratropium (DuoNeb 0.5-3(2.5)mg/3ml) 3 ml EVERY 4 HOURS PRN HHN Shortness of Breath 07/19/17 00:15 07/24/17 00:14 Clotrimazole (Lotrimin) 1 applic EVERY 12 HOURS TOPIC 07/19/17 21:00 08/18/17 20:59 07/22/17 20:53 Dextrose (Dextrose 50%) STAT PRN IV Hypoglycemia 07/19/17 00:15 08/18/17 00:14 Heparin Sodium (Porcine) (Heparin 5000 units/ml) 5,000 units EVERY 12 HOURS SUBQ 07/19/17 09:00 08/18/17 08:59 07/23/17 09:21 Morphine Sulfate (Morphine Sulfate) 2 mg EVERY 4 HOURS PRN IVP Moderate Pain (Pain Scale 4-6) 07/19/17 00:15 07/26/17 00:14 Nitroglycerin (Ntg) 0.4 mg Every 5 Minutes PRN SL Prn Chest Pain 07/19/17 00:15 08/18/17 00:14 Ondansetron HCl (Zofran) 4 mg Q6H PRN IVP Nausea & Vomiting 07/19/17 00:15 08/18/17 00:14 Polyethylene Glycol (Miralax) 17 gm DAILYPRN PRN ORAL Constipation 07/19/17 00:15 08/18/17 00:14 Risperidone (RisperDAL) 2 mg BID ORAL 07/20/17 18:00 08/18/17 20:59 Temazepam (Restoril) 15 mg HSPRN PRN ORAL Insomnia 07/19/17 00:15 07/26/17 00:14 Vancomycin HCl (Vanco rx to dose) 1 ea DAILY PRN MISC PER PROTOCOL 07/19/17 01:30 08/18/17 01:29 Vancomycin/Sodium Chloride 250 ml @ 166.667 mls/hr Q8H IVPB 07/22/17 08:00 07/27/17 07:59 Allergies: Coded Allergies: No Known Allergies (Unverified , 07/19/17) ROS Limited/Unobtainable: Yes Subjective 32 YO F admitted with altered mental status. Now cellulitis right foot and Psycosis. Cover for Int Med-Dr Subramanian. Paranoid and Agitated; requires 1:1 sitter. Refusing all meds. Await PET team eval Objective Last Vital Signs Date Time Temp Pulse Resp B/P (MAP) Pulse Ox O2 Delivery O2 Flow Rate FiO2 07/23/17 15:35 97.6 56 20 99/54 99 Room Air 07/23/17 07:51 21 Laboratory Tests Test 07/23/17 04:30 White Blood Count 6.4 K/UL (4.8-10.8) Red Blood Count 3.96 M/UL (4.20-5.40) L Hemoglobin 12.0 G/DL (12.0-16.0) Hematocrit 36.6 % (37.0-47.0) L Mean Corpuscular Volume 93 FL (80-99) Mean Corpuscular Hemoglobin 30.3 PG (27.0-31.0) Mean Corpuscular Hemoglobin Concent 32.7 G/DL (32.0-36.0) Red Cell Distribution Width 12.0 % (11.6-14.8) Platelet Count 285 K/UL (150-450) Mean Platelet Volume 6.3 FL (6.5-10.1) L Neutrophils (%) (Auto) 49.9 % (45.0-75.0) Lymphocytes (%) (Auto) 31.5 % (20.0-45.0) Monocytes (%) (Auto) 11.2 % (1.0-10.0) H Eosinophils (%) (Auto) 6.0 % (0.0-3.0) H Basophils (%) (Auto) 1.3 % (0.0-2.0) Sodium Level 142 mEQ/L (135-145) Potassium Level 4.2 mEQ/L (3.4-4.9) Chloride Level 104 mEQ/L (98-107) Carbon Dioxide Level 29 mEQ/L (20-30) Anion Gap 9 (5-15) Blood Urea Nitrogen 9 mg/dL (7-23) Creatinine 0.8 mg/dL (0.5-0.9) Estimat Glomerular Filtration Rate > 60 mL/min (>60) Glucose Level 87 mg/dL (74-106) Calcium Level 9.1 mg/dL (8.6-10.2) Intake and Output 07/23/17 07/24/17 19:00 07:00 Intake Total 1080 ml Balance 1080 ml Intake Oral 1080 ml # Voids 6 Objective General Appearance: WD/WN, no apparent distress, alert EENT: PERRL/EOMI, normal ENT inspection Neck: non-tender, normal alignment, supple, normal inspection Cardiovascular: normal peripheral pulses, normal rate, regular rhythm, no gallop/murmur, no JVD Respiratory/Chest: chest wall non-tender, lungs clear, normal breath sounds, no respiratory distress, no accessory muscle use Abdomen: normal bowel sounds, non tender, soft, no organomegaly, no mass Extremities: normal range of motion 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 (3) Gravely disabled (4) Cellulitis of right ankle Assessment & Plan: Continue vancomycin per ID. (5) Psychosis Assessment & Plan: Await PET team eval. Follow psych recs. (6) Noncompliance with medication regimen Assessment/Plan Transfer to inpatient psych unit per Psychiatry JONATHAN FRANKLIN Jul 23, 2017 17:46
[2017-07-23 19:59] VITALS: BP 105/54
[2017-07-24 04:00] VITALS: BP 125/72
[2017-07-24 08:00] VITALS: BP 115/83
[2017-07-24] MEDS: Vancomycin 750mg/NS 250ml IVPB SCH ×3 (08:00→15:35)
[2017-07-24] MEDS: Heparin 5000 units/ml inj SUBQ SCH (09:00)
[2017-07-24 12:00] VITALS: BP 115/77
--- NOTE | 2017-07-24 12:20 | Internal Med Progress Note ---
Subjective Date of Service: Jul 24, 2017 Physician Name Jonathan Franklin Attending Physician Von Subramanian MD Current Medications Medications (Trade) Dose Ordered Sig/Florian Route PRN Reason Start Time Stop Time Status Last Admin Dose Admin Acetaminophen (Tylenol) 650 mg Q4H PRN ORAL fever 07/19/17 00:15 08/18/17 00:14 Clotrimazole (Lotrimin) 1 applic EVERY 12 HOURS TOPIC 07/19/17 21:00 08/18/17 20:59 07/24/17 09:01 Dextrose (Dextrose 50%) STAT PRN IV Hypoglycemia 07/19/17 00:15 08/18/17 00:14 Heparin Sodium (Porcine) (Heparin 5000 units/ml) 5,000 units EVERY 12 HOURS SUBQ 07/19/17 09:00 08/18/17 08:59 07/23/17 09:21 Morphine Sulfate (Morphine Sulfate) 2 mg EVERY 4 HOURS PRN IVP Moderate Pain (Pain Scale 4-6) 07/19/17 00:15 07/26/17 00:14 Nitroglycerin (Ntg) 0.4 mg Every 5 Minutes PRN SL Prn Chest Pain 07/19/17 00:15 08/18/17 00:14 Ondansetron HCl (Zofran) 4 mg Q6H PRN IVP Nausea & Vomiting 07/19/17 00:15 08/18/17 00:14 Polyethylene Glycol (Miralax) 17 gm DAILYPRN PRN ORAL Constipation 07/19/17 00:15 08/18/17 00:14 Risperidone (RisperDAL) 2 mg BID ORAL 07/20/17 18:00 08/18/17 20:59 Temazepam (Restoril) 15 mg HSPRN PRN ORAL Insomnia 07/19/17 00:15 07/26/17 00:14 Vancomycin HCl (Vanco rx to dose) 1 ea DAILY PRN MISC PER PROTOCOL 07/19/17 01:30 08/18/17 01:29 Vancomycin/Sodium Chloride 250 ml @ 166.667 mls/hr Q8H IVPB 07/22/17 08:00 07/27/17 07:59 Allergies: Coded Allergies: No Known Allergies (Unverified , 07/19/17) ROS Limited/Unobtainable: Yes Subjective 32 YO F admitted with altered mental status. Now cellulitis right foot and Psycosis. Cover for Int Med-Dr Subramanian. Paranoid and Agitated; requires 1:1 sitter. Refusing all meds. Await PET team eval Objective Last Vital Signs Date Time Temp Pulse Resp B/P (MAP) Pulse Ox O2 Delivery O2 Flow Rate FiO2 07/24/17 08:00 98.6 69 16 115/83 97 Room Air 07/23/17 19:30 21 Objective General Appearance: WD/WN, no apparent distress, alert EENT: PERRL/EOMI, normal ENT inspection Neck: non-tender, normal alignment, supple, normal inspection Cardiovascular: normal peripheral pulses, normal rate, regular rhythm, no gallop/murmur, no JVD Respiratory/Chest: chest wall non-tender, lungs clear, normal breath sounds, no respiratory distress, no accessory muscle use Abdomen: normal bowel sounds, non tender, soft, no organomegaly, no mass Extremities: normal range of motion 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 (3) Gravely disabled (4) Cellulitis of right ankle Assessment & Plan: Continue vancomycin per ID. (5) Psychosis Assessment & Plan: Await PET team eval. Follow psych recs. (6) Noncompliance with medication regimen Assessment/Plan Discharge planning: Discharge home when cleared by psych. JONATHAN FRANKLIN Jul 24, 2017 12:20
[2017-07-24 16:00] VITALS: BP 100/50
[2017-07-24] MEDS ORDERED: NS 275ml ONE (16:30)
[2017-07-24] MEDS ORDERED: Tubing IV Secondary IV ONE (16:30)
[2017-07-24] MEDS ORDERED: CEPHALEXIN500 MG ORAL (16:34)
--- NOTE | 2017-07-24 18:01 | Infectious Diseases Prog Note ---
Assessment/Plan Assessment/Plan A; Right foot cellulitis; resolving -bcx NTD -venous duplex BLE: no DVT leukocytosis(up to 21)- resolved Psychosis +UDS for marijuana HIV neg P; -Has refused IV Vancomycin since 07/22- received 4 doses previously -ok to discharge on Keflex 500mg PO bid for 2 more days Discussed with RN. Subjective Allergies: Coded Allergies: No Known Allergies (Unverified , 07/19/17) Subjective afebrile has refused IV Vanco since 07/22- was notified today by RN no leukocytosis for discharge today Objective Vital Signs Last 24 Hour Vital Signs Date Time Temp Pulse Resp B/P (MAP) Pulse Ox O2 Delivery O2 Flow Rate FiO2 07/24/17 16:00 98.0 53 17 100/50 98 Room Air 07/24/17 12:00 97.7 71 18 115/77 98 Room Air 07/24/17 08:00 98.6 69 16 115/83 97 Room Air 07/24/17 06:45 69 16 Room Air 07/24/17 04:00 97.9 80 18 125/72 96 Room Air 07/23/17 19:59 98.1 52 18 105/54 96 Room Air 07/23/17 19:30 80 16 Room Air 21 Height (Feet): 5 Height (Inches): 4.00 Weight (Pounds): 125 Objective not done as patient already discharged Current Medications Medications (Trade) Dose Ordered Sig/Florian Route PRN Reason Start Time Stop Time Status Last Admin Dose Admin Acetaminophen (Tylenol) 650 mg Q4H PRN ORAL fever 07/19/17 00:15 08/18/17 00:14 Clotrimazole (Lotrimin) 1 applic EVERY 12 HOURS TOPIC 07/19/17 21:00 08/18/17 20:59 07/24/17 09:01 Dextrose (Dextrose 50%) STAT PRN IV Hypoglycemia 07/19/17 00:15 08/18/17 00:14 Heparin Sodium (Porcine) (Heparin 5000 units/ml) 5,000 units EVERY 12 HOURS SUBQ 07/19/17 09:00 08/18/17 08:59 07/23/17 09:21 Morphine Sulfate (Morphine Sulfate) 2 mg EVERY 4 HOURS PRN IVP Moderate Pain (Pain Scale 4-6) 07/19/17 00:15 07/26/17 00:14 Nitroglycerin (Ntg) 0.4 mg Every 5 Minutes PRN SL Prn Chest Pain 07/19/17 00:15 08/18/17 00:14 Ondansetron HCl (Zofran) 4 mg Q6H PRN IVP Nausea & Vomiting 07/19/17 00:15 08/18/17 00:14 Polyethylene Glycol (Miralax) 17 gm DAILYPRN PRN ORAL Constipation 07/19/17 00:15 08/18/17 00:14 Risperidone (RisperDAL) 2 mg BID ORAL 07/20/17 18:00 08/18/17 20:59 Temazepam (Restoril) 15 mg HSPRN PRN ORAL Insomnia 07/19/17 00:15 07/26/17 00:14 Vancomycin HCl (Vanco rx to dose) 1 ea DAILY PRN MISC PER PROTOCOL 07/19/17 01:30 08/18/17 01:29 Vancomycin/Sodium Chloride 250 ml @ 166.667 mls/hr Q8H IVPB 07/22/17 08:00 07/27/17 07:59 Savana Valles M.D. Jul 24, 2017 18:01
--- NOTE | 2017-07-24 20:01 | General Progress Note ---
Assessment/Plan Assessment/Plan schizophrenia -haldol dec given the pt is not meeting the criteria for 5150/ Subjective Allergies: Coded Allergies: No Known Allergies (Unverified , 07/19/17) Subjective the pt is not endorsing psychotic sxs at the time of eval the pt is refusing follow up referrals. the pt wants to be discharged. Objective Last 24 Hour Vital Signs Date Time Temp Pulse Resp B/P (MAP) Pulse Ox O2 Delivery O2 Flow Rate FiO2 07/24/17 16:00 98.0 53 17 100/50 98 Room Air 07/24/17 12:00 97.7 71 18 115/77 98 Room Air 07/24/17 08:00 98.6 69 16 115/83 97 Room Air 07/24/17 06:45 69 16 Room Air 07/24/17 04:00 97.9 80 18 125/72 96 Room Air 07/23/17 19:59 98.1 52 18 105/54 96 Room Air Intake and Output 07/24/17 07/25/17 19:00 07:00 Intake Total 850 ml Balance 850 ml Intake Oral 850 ml # Voids 3 Height (Feet): 5 Height (Inches): 4.00 Weight (Pounds): 125 General Appearance: no apparent distress, alert, thin Neurologic: alert, oriented x 3, responsive, normal mood/affect Darling Colón M.D. Jul 24, 2017 20:01
--- NOTE | 2017-07-26 12:44 | Discharge Summary ---
Discharge Summary Hospital Course Date of Admission Jul 18, 2017 at 23:41 Date of Discharge Jul 24, 2017 at 18:41 Admitting Diagnosis cellulitis HPI Cait Diego is a 32 year old female who was admitted on Jul 18, 2017 at 23: 41 for Cellulitis Hospital Course [id number] Discharge Discharge Disposition Patient was discharged to Home ()-homeless Discharge Diagnoses: Marion Meza NP Jul 26, 2017 12:44
--- NOTE | 2017-07-26 22:00 | Discharge Summary 2 SIG ---
DATE OF ADMISSION: 07/18/2017 DATE OF DISCHARGE: 07/24/2017 CONSULTANTS: 1. Darling Colón M.D. 2. Savana Valles M.D. 3. Adriana Martinez M.D. Brief Hospital Course: The patient is a 32-year-old white female, who presented complaining of right foot pain and swelling. She is Somali-speaking and has a psychiatric disorder. According to records, she was found in the street. The patient was disorganized and was yelling. She was uncooperative with the police. On evaluation at ED, she was noted to have redness on the right foot. X-ray of the ankle showed no acute bony trauma with lateral soft tissue swelling. WBC was elevated to 21. Toxicology panel was negative except for marijuana. She was started on IV vancomycin and cefepime. She was evaluated by Dr. Colón and was diagnosed to have schizophrenia. She was started on Risperdal. Venous duplex of lower extremity was negative for DVT. Cefepime was placed on hold and was continued on IV vancomycin. Blood culture did not isolate any growth. The patient was paranoid and agitated and required one-to-one sitter. She was refusing medications. The patient did not meet criteria for 5150. She received 4 doses of vancomycin and refused subsequent doses. HIV screen was negative. She was eventually discharged home. She was refusing followup referrals. She signed homeless form upon discharge. Bus tokens were provided. FINAL DIAGNOSES: 1. Schizophrenia. 2. Cellulitis of the right ankle. 3. Noncompliance with medication. 4. Acute encephalopathy. Disposition: The patient was discharged home and signed homeless form. DISCHARGE MEDICATIONS: Cephalexin 500 mg b.i.d. for two more days. Followup: The patient was advised to follow up with [facility] within a week. Von Subramanian M.D. I have been assigned to dictate discharge summary on this account and I was not involved in the patient's management. Marion Meza N.P. DR: MARY JOB#: [id number] CC:
== END 2017-07-24 18:41 | disposition home or self-care (01) | DRG 602 ==
LOC: EDBD 20:40 → EMR 21:12 → EDBD 23:41 → 4E 23:41 → EDBEDREQ 07-19 00:52 → 4E 07-19 18:21
DX: L03.115 Cellulitis of right lower limb (principal); G93.40 Encephalopathy, unspecified; F20.9 Schizophrenia, unspecified; F22 Delusional disorders; F29 Unspecified psychosis not due to a substance or known physiological condition; Z91.14 Patient's other noncompliance with medication regimen; Z59.0 Homelessness
CPT/HCPCS: 36415; 80048; 80053; 80202; 80300; 80329; 81003; 81025; 85007; 85025; 86703; 86705; 86709; 86803; 87040; 87340; 93970; 94664; 99285